=== PATIENT | male | born 1955 | race Caucasian/White ===

== ENCOUNTER 2023-06-22 23:50 | Emergency (ER) | payer OTHER, SELFPAY ==
[2023-06-23] VITALS (7 sets, daily range): BP systolic 119–169; BP diastolic 64–90; BMI 30.6
[2023-06-23 01:20] LABS: % Basophils 0.3 % (0-2); % Eosinophils 3.6 % (0-6); % Immature Granulocytes 0.4 % (0-0.5); % Lymphocytes 25.9 % (20.5-51.1); % Monocytes 10.1 % (1.7-9.3); % Neutrophils 59.7 % (42.2-75.2); Absolute Eosinophils 0.3 10^3/uL (0-0.7); Absolute Lymphocytes 1.9 10^3/uL (1.2-3.4); Absolute Monocytes 0.7 10^3/uL (0.1-0.6); Absolute Neutrophils 4.3 10^3/uL (1.4-6.5); Hematocrit 37.4 % (39.0-52.0); Hemoglobin 13.4 g/dL (13.0-18.0); Mean Corp Hgb Conc. 35.8 g/dL (33.0-37.0); Mean Corpuscular Hgb 31.2 pg (27.0-31.0); Mean Corpuscular Volume 87.2 fL (80.0-94.0); Mean Platelet Volume 10.1 fL (7.4-10.4); Nucleated Red Blood Cells % 0 % (-); Platelet Count 206 10^3/uL (130-400); Red Blood Cell Count 4.29 10^6/uL (4.70-6.10); Red Cell Dist. Width 13.2 % (11.5-14.5); White Blood Cell Count 7.3 10^3/uL (4.8-10.8)
[2023-06-23 01:31] LABS: D-Dimer 0.35 ug/mlFEU (0.00-0.50)
[2023-06-23 01:39] LABS: ALT (SGPT) 24 U/L (0-50); AST (SGOT) 33 U/L (17-59); Albumin 3.6 g/dl (3.5-5.0); Alkaline Phosphatase 71 U/L (38-126); Blood Urea Nitrogen 18 mg/dl (9-20); Calcium 9.1 mg/dl (8.4-10.2); Carbon Dioxide 26 mmol/L (22-30); Chloride 103 mmol/L (98-107); Estimated Creatinine Clearance 86 ml/min; Glucose 101 mg/dl (70-99); Potassium 3.2 mmol/L (3.5-5.1); Sodium 138 mmol/L (135-145); Total Bilirubin 0.5 mg/dl (0.2-1.3); Total Protein 5.6 g/dl (6.3-8.2); eGFR > 60.00
[2023-06-23 01:47] LABS: Troponin I < 0.012 ng/ml
--- NOTE | 2023-06-23 02:58 | ED.GENMED ---
History of Present Illness
<Jurgen Bradford PA-C - Last Filed: 06/24/23 07:09>
General
Chief Complaint: Chest Pain
Time Seen by Provider: 06/23/23 00:39
Travel History
Have you had any contact with someone who has COVID-19?: No
Do you have any symptoms of coronavirus? Fever > 100 degrees, chills, cough, shortness of breath, sore throat, loss of taste or smell, muscle aches, or headache?: No
History of Present Illness
History of Present Illness:
68-year-old male with history of A-fib, coronary artery disease, hypertension, and hyperlipidemia presents to the emergency department for evaluation of left-sided chest pain that began at 10:30 PM yesterday. Pain has lessened since onset, also
notes generalized headache and bilateral calf tingling at the onset of symptoms. Denies any pleuritic pain or shortness of breath. No associated fevers. Notes that his Eliquis was discontinued 1 month ago by his reserves clerk. Pain is currently
rated 1 out of 10, nonradiating.
Past History
<Jurgen Bradford PA-C - Last Filed: 06/24/23 07:09>
Past History
ED Past Medical History: Arrthythmia (Paroxysmal atrial fibrillation), GERD (Hiatal hernia), HTN, Hypercholesterolemia and NIDDM (diet control, prediabetes)
ED Past Surgical History: Cardiac (Coronary artery bypass), Tonsilectomy and Other (hernia repair)
Social History
Tobacco: Non-smoker
Alcohol: Occasional
Personal:
Living: with family
Employment: Retired
Family History
Family History: Hypertension
Review of Systems
<Jurgen Bradford PA-C - Last Filed: 06/24/23 07:09>
Review of Systems
Allergies reviewed?: Yes
All Other Systems: ROS reviewed and negative except as documented in HPI and ROS
Phy Exam
<Jurgen Bradford PA-C - Last Filed: 06/24/23 07:09>
Physical Exam
Physical Exam:
GEN: Well appearing, NAD, WDWN
HEENT: Oral mucosa moist, no scleral icterus
Cardiac: Regular rate and rhythm, no murmurs or rubs
Lung: No respiratory distress, no tachypnea, lungs clear to auscultation bilaterally
MSK: No gross deformity or injuries
Skin: Good color, no pallor or jaundice, no rashes
Neuro: AO x3, moves all extremities freely
Psych: Calm, cooperative
Scores
<Jurgen Bradford PA-C - Last Filed: 06/24/23 07:09>
Heart Score for Chest Pain Patients
STEMI patient?: No
History: Slightly or Non-Suspicious
ECG: Normal
Age: >/= 65 years
Risk Factors: >/= 3 Risk Factors or History of CAD
Troponin: </= Normal Limit
Heart Score for Chest Pain Patients: 4
Heart Score Risk: 20.3% MACE over next 6 weeks
<Sheron Argueta DO - Last Filed: 06/23/23 05:10>
Heart Score for Chest Pain Patients
Heart Score for Chest Pain Patients: 4
Heart Score Risk: 20.3% MACE over next 6 weeks
Course
<Jurgen Bradford PA-C - Last Filed: 06/24/23 07:09>
Orders/Labs/Results
Orders:
Orders
06/22/23 23:55
EKG [Electrocardiogram (*1)] Urgent
Reason for Study: Chest Pain
EKG- Treatment ONCE
06/23/23 01:01
Complete Blood Count/With Diff Urgent
Comprehensive Metabolic Panel Urgent
D-Dimer Urgent
Troponin I Urgent
06/23/23 02:03
EKG- Treatment ONCE
06/23/23 02:40
CR Chest - 2 Views Urgent
Comment:
Reason For Exam: L chest pain
06/23/23 03:14
Potassium Chloride [KCl] 40 meq PO NOW STA
06/23/23 04:00
EKG [Electrocardiogram (*1)] Routine
Reason for Study: Chest Pain
06/23/23 04:26
Troponin I Routine
Abnormal Lab Results
06/23/23
01:01
RBC 4.29 L 10^6/uL
(4.70-6.10)
Hct 37.4 L %
(39.0-52.0)
MCH 31.2 H pg
(27.0-31.0)
Absolute Monos (auto) 0.7 H 10^3/uL
(0.1-0.6)
Monocytes % 10.1 H %
(1.7-9.3)
Potassium 3.2 L mmol/L
(3.5-5.1)
Glucose 101 H mg/dl
(70-99)
Total Protein 5.6 L g/dl
(6.3-8.2)
06/23/23 01:01
06/23/23 01:01
Vital Signs
Initial and Last Documented VS:
Initial Vital Signs
Temp Pulse Resp BP Pulse Ox
98.4 F 69 20 169/80 97
06/23/23 00:02 06/23/23 00:02 06/23/23 00:02 06/23/23 00:02 06/23/23 00:02
Last Documented Vital Signs
Temp Pulse Resp BP Pulse Ox
98.4 F 53 11 121/72 94
06/23/23 00:02 06/23/23 05:00 06/23/23 05:00 06/23/23 05:00 06/23/23 05:00
<Sheron Argueta, DO - Last Filed: 06/23/23 05:10>
Orders/Labs/Results
Orders:
Orders
06/22/23 23:55
EKG [Electrocardiogram (*1)] Urgent
Reason for Study: Chest Pain
EKG- Treatment ONCE
06/23/23 01:01
Complete Blood Count/With Diff Urgent
Comprehensive Metabolic Panel Urgent
D-Dimer Urgent
Troponin I Urgent
06/23/23 02:03
EKG- Treatment ONCE
06/23/23 02:40
CR Chest - 2 Views Urgent
Comment:
Reason For Exam: L chest pain
06/23/23 03:14
Potassium Chloride [KCl] 40 meq PO NOW STA
06/23/23 04:00
EKG [Electrocardiogram (*1)] Routine
Reason for Study: Chest Pain
06/23/23 04:26
Troponin I Routine
Abnormal Lab Results
06/23/23
01:01
RBC 4.29 L 10^6/uL
(4.70-6.10)
Hct 37.4 L %
(39.0-52.0)
MCH 31.2 H pg
(27.0-31.0)
Absolute Monos (auto) 0.7 H 10^3/uL
(0.1-0.6)
Monocytes % 10.1 H %
(1.7-9.3)
Potassium 3.2 L mmol/L
(3.5-5.1)
Glucose 101 H mg/dl
(70-99)
Total Protein 5.6 L g/dl
(6.3-8.2)
06/23/23 01:01
06/23/23 01:01
Vital Signs
Initial and Last Documented VS:
Initial Vital Signs
Temp Pulse Resp BP Pulse Ox
98.4 F 69 20 169/80 97
06/23/23 00:02 06/23/23 00:02 06/23/23 00:02 06/23/23 00:02 06/23/23 00:02
Last Documented Vital Signs
Temp Pulse Resp BP Pulse Ox
98.4 F 53 11 121/72 94
06/23/23 00:02 06/23/23 05:00 06/23/23 05:00 06/23/23 05:00 06/23/23 05:00
<Jurgen Bradford PA-C - Last Filed: 06/24/23 07:09>
MDM/Problems Addressed
MDM/Problems Addressed:
68-year-old male presenting with acute chest pain that developed while seated in a chair. He had been exerting himself throughout the day earlier with no reproducible symptoms. Pain is quite minimal and does not sound anginal in nature. Patient
also had a cardiac catheterization in December showing minimal coronary disease. I have a low clinical suspicion for ACS. D-dimer rules out pulmonary embolism. That said given the patient's advanced age and numerous cardiovascular risk factors he
will have repeat troponin checked at 0400 hrs. and if negative may be discharged home, do not feel strongly that he requires close cardiac follow-up
<Jurgen Bradford PA-C - Last Filed: 06/24/23 07:09>
Comment
Comment:
Initial EKG independently interpreted by me shows normal sinus rhythm at a rate of [address] changes concerning for ischemia
*Critical Care Note
Total Time (30-74mins, 75-104mins- exclusive of procedures): Not Applicable
ED Attending Note
<Jurgen Bradford PA-C - Last Filed: 06/24/23 07:09>
-
Portions of this chart may have been created with voice recognition software.� Occasional wrong word or��sound alike� substitutions may have occurred due to the inherent limitations of voice recognition software.
<Sheron Argueta, DO - Last Filed: 06/23/23 05:10>
ED Attending Note
I performed the substantive portion of visit, reviewed & personally made and approve the management plan that is documented in note by myself or SAMINA.: Yes
ED Attending Note:
Patient presents with brief episode of sharp, stabbing chest pain while seated. Had been quite active throughout the day without symptomatology.
History of paroxysmal atrial fibrillation, previously maintained on Eliquis which has recently been discontinued, transition to aspirin.
Patient has been asymptomatic since arrival to the ED.
Records reveal cardiac catheterization December 2022, Performed for evaluation of progressive aortic stenosis and aortic valve replacement April 2020 along with intermittent chest pain. Cardiac catheterization showed mild/stable coronary artery
disease not requiring intervention.
EKGs unremarkable, unchanged from previous.
Labs are unremarkable including negative D-dimer, negative troponin x 2.
Nonspecific chest pain does not appear to be ACS nor thromboembolism in nature. Patient remains comfortable and pain-free.
Will plan for discharge to home with follow-up with PCP as well as primary reserves clerk.
Discharge Plan
Departure
Patient Disposition: Home (Routine Discharge)
Date of Disposition: 06/23/23
Time of Disposition: 05:05
Patient with high blood pressure during this ER visit?: No
Condition: Good
Discharge Problem:
Atypical chest pain
Instructions: Chest Pain (DC), Chest Pain PCP Follow Up
Prescriptions:
No Action
ezetimibe 10 MG tablet
10 mg PO DAILY
esomeprazole magnesium [Nexium] 40 MG capsule,delayed release(DR/EC)
40 mg PO BID PRN (Reason: reflux)
Men 50 Plus Multivitamin 1 EACH tablet
1 ea PO DAILY
ascorbic acid (vitamin C) 500 MG capsule
1,000 mg PO BID
acetaminophen 325 MG tablet
650 mg PO Q4HPRN PRN (Reason: pain)
Eliquis 2.5 mg Tablet
2.5 mg PO BID Qty: 60 0RF
metoprolol succinate 50 mg tablet extended release 24 hr
50 mg PO BID Qty: 60 0RF
furosemide [Lasix] 40 mg tablet
40 mg PO BID
amiodarone [Pacerone] 200 mg Tablet
200 mg PO DAILY Qty: 1 0RF
Rx Instructions:
Please note decreased dose
cyclosporine [Restasis] 0.05 % Dropperette
1 drp OPHTHALMIC (EYE) Q12H
rosuvastatin 10 mg Tablet
15 mg PO DAILY
isosorbide mononitrate 30 mg tablet extended release 24 hr
30 mg PO DAILY Qty: 90 5RF
Referrals:
Jen Hill DO [Family Provider] -
Interventions
Interventions:
*Risk Screen - Suicide Last Done: 06/23/23 00:55
*General Assessment Last Done: 06/23/23 00:55
*Neglect/Abuse Screening Last Done: 06/23/23 00:55
*ED COVID-19 Vaccine History Last Done: 06/23/23 00:55
*Nursing Disposition Last Done: 06/23/23 05:11
ED- Cardiac Assessment Last Done: 06/23/23 00:55
Discharge Date and Time
Discharge Date/Time: 06/23/23 05:11
[2023-06-23] MEDS: KCL 40 MEQ PO (04:29)
[2023-06-23 04:56] LABS: Troponin I < 0.012 ng/ml
== END 2023-06-23 05:11 | disposition home or self-care (01) ==
LOC: EMR 23:50
PROVIDERS: Physician Assistant; EMERGENCY PHYSICIAN Emergency Medicine; FAMILY PHYSICIAN Family Medicine
DX: R07.9 Chest pain, unspecified (principal); R07.89 Other chest pain; I48.0 Paroxysmal atrial fibrillation; I25.10 Atherosclerotic heart disease of native coronary artery without angina pectoris; I10 Essential (primary) hypertension; E78.00 Pure hypercholesterolemia, unspecified
CPT/HCPCS: 99285; 71046; 80053; 84484; 85025; 85379; 93005

== ENCOUNTER → 2023-08-25 08:23 | Outpatient (REF) | payer OTHER, SELFPAY | LOC: RCS 08:23 | PROVIDERS: ATTENDING PHYSICIAN Family Medicine; REFERRING PHYSICIAN Internal Medicine Cardiovascular Disease | DX: Z86.79 Personal history of other diseases of the circulatory system (principal); I49.1 Atrial premature depolarization | CPT/HCPCS: 93225; 93226 ==

== ENCOUNTER → 2023-10-05 10:15 | Outpatient (REF) | payer OTHER, SELFPAY | LOC: RCS 10:15 | PROVIDERS: ATTENDING PHYSICIAN Internal Medicine Cardiovascular Disease; FAMILY PHYSICIAN Family Medicine | DX: I10 Essential (primary) hypertension (principal) | CPT/HCPCS: 93306 ==

== ENCOUNTER → 2023-11-17 09:00 | Outpatient (REF) | payer OTHER, SELFPAY | LOC: DHSLP 09:00 | PROVIDERS: ATTENDING PHYSICIAN Internal Medicine; FAMILY PHYSICIAN Family Medicine | DX: G47.33 Obstructive sleep apnea (adult) (pediatric) (principal); G47.61 Periodic limb movement disorder; G47.52 REM sleep behavior disorder | CPT/HCPCS: 95811 ==

== ENCOUNTER → 2023-12-08 12:59 | Outpatient (REF) | payer OTHER, SELFPAY | LOC: RAD 12:59 | PROVIDERS: ATTENDING PHYSICIAN Internal Medicine Cardiovascular Disease; FAMILY PHYSICIAN Family Medicine | DX: R20.0 Anesthesia of skin (principal); R20.2 Paresthesia of skin | CPT/HCPCS: 93922; 93925 ==

== ENCOUNTER 2023-12-14 04:28 | Emergency (ER) | payer OTHER, SELFPAY ==
[2023-12-14] VITALS (22 sets, daily range): BP systolic 93–169; BP diastolic 54–91; BMI 29.9
[2023-12-14] MEDS: LOPRESSOR 5 MG IV (04:56)
[2023-12-14 05:14] LABS: % Basophils 0.3 % (0-2); % Eosinophils 3.1 % (0-6); % Immature Granulocytes 0.5 % (0-0.5); % Lymphocytes 25.8 % (20.5-51.1); % Monocytes 9.6 % (1.7-9.3); % Neutrophils 60.7 % (42.2-75.2); ALT (SGPT) 22 U/L (0-50); AST (SGOT) 31 U/L (17-59); Absolute Eosinophils 0.2 10^3/uL (0-0.7); Absolute Lymphocytes 1.7 10^3/uL (1.2-3.4); Absolute Monocytes 0.6 10^3/uL (0.1-0.6); Absolute Neutrophils 3.9 10^3/uL (1.4-6.5); Albumin 4.2 g/dl (3.5-5.0); Alkaline Phosphatase 95 U/L (38-126); Blood Urea Nitrogen 21 mg/dl (9-20); Calcium 9.3 mg/dl (8.4-10.2); Carbon Dioxide 23 mmol/L (22-30); Chloride 107 mmol/L (98-107); Estimated Creatinine Clearance 69 ml/min; Glucose 136 mg/dl (70-99); Hematocrit 41.2 % (39.0-52.0); Hemoglobin 14.5 g/dL (13.0-18.0); Mean Corp Hgb Conc. 35.2 g/dL (33.0-37.0); Mean Corpuscular Hgb 30.7 pg (27.0-31.0); Mean Corpuscular Volume 87.1 fL (80.0-94.0); Mean Platelet Volume 10.3 fL (7.4-10.4); Nucleated Red Blood Cells % 0 % (-); Platelet Count 203 10^3/uL (130-400); Potassium 3.6 mmol/L (3.5-5.1); Red Blood Cell Count 4.73 10^6/uL (4.70-6.10); Red Cell Dist. Width 13.2 % (11.5-14.5); Sodium 139 mmol/L (135-145); Total Bilirubin 0.6 mg/dl (0.2-1.3); Total Protein 6.4 g/dl (6.3-8.2); White Blood Cell Count 6.5 10^3/uL (4.8-10.8); eGFR > 60.00
--- NOTE | 2023-12-14 05:17 | ED.GENMED ---
History of Present Illness
General
Chief Complaint: Heart Rate Problem
Time Seen by Provider: 12/14/23 04:37
History of Present Illness
History of Present Illness:
68-year-old male with history of atrial fibrillation status post ablation x 2 and watchman's procedure, history of atrial valve replacement, hypertension presenting to the emergency department for concern of A-fib. Patient reports that around 230
this morning, he woke up from sleep with palpitations. Reports that his symptoms are consistent with atrial fibrillation, knows when he is in the abnormal rhythm. He has not been in atrial fibrillation since he had a watchman's procedure. He is
currently not on any anticoagulation. He denies chest pain, however notes a tightness secondary to palpitations. Denies difficulty breathing. Denies abdominal pain or GI symptoms. He follows with cardiology at [facility]. He notes that he saw
the hogshead liner on Tuesday, 5 days ago, at which time he was not in atrial fibrillation. Denies fever or cough. Denies additional acute medical complaints
Past History
Past History
ED Past Medical History: Arrthythmia (Paroxysmal atrial fibrillation), GERD (Hiatal hernia), HTN, Hypercholesterolemia and NIDDM (diet control, prediabetes)
ED Past Surgical History: Cardiac (Coronary artery bypass), Tonsilectomy and Other (hernia repair)
Social History
Tobacco: Non-smoker
Alcohol: Occasional
Personal:
Living: with family
Employment: Retired
Family History
Family History: Hypertension
Phy Exam
Physical Exam
Physical Exam:
General: Well-appearing, no clinical signs of dehydration, nontoxic and in no acute distress
HEENT: protecting airway
Neck: appears supple
CV: Irregularly irregular rhythm, tachycardic
Resp: No accessory muscle use, no increased work of breathing, lungs clear to auscultation bilaterally
Abd: Soft and non-distended, no tenderness to palpation, normal bowel sounds
Extremities: No deformities, no swelling, no erythema, pulses and sensation intact
Neuro: alert, no focal neurologic deficit
: deferred
Rectal: deferred
Psych: Normal affect
Skin: Intact
Course
Orders/Labs/Results
Orders:
Orders
12/14/23 04:34
Electrocardiogram (*1) Urgent
Reason for Study: Other
Other Reason for Exam: Respiratory Distress
Cardiac Monitoring- Treatment ONCE
EKG- Treatment ONCE
IV Insert/Care/Rem.- Treatment PRN
CR Chest - 2 Views Urgent
Comment:
Reason For Exam: respiratory distress
O2 Therapy [RESP] Urgent
Titrate/Wean O2 to maintain O2 sat greater than (%): 93
Special Instructions: TO MAINTAIN CONTINUOUS O2 SATS >/= 93%
Pulse Ox/cont/shift [RESP] Urgent
Quantity: 1
Special Instructions: continuous pulse ox
12/14/23 04:49
Metoprolol [Lopressor] 5 mg IV NOW STA
12/14/23 04:53
Complete Blood Count/With Diff Urgent
Comprehensive Metabolic Panel Urgent
NT-proBNP Urgent
Troponin I Urgent
12/14/23 05:04
Propofol [Diprivan] 20 ml .ROUTE .STK-MED
12/14/23 06:30
EKG [Electrocardiogram (*1)] Urgent
Reason for Study: Atrial Fibrillation
EKG- Treatment ONCE
12/14/23 06:34
0.9% Sodium Chloride 500 ml [Nss] 0 ml IV ONCE
Abnormal Lab Results
12/14/23
04:53
Monocytes % 9.6 H %
(1.7-9.3)
BUN 21 H mg/dl
(9-20)
Glucose 136 H mg/dl
(70-99)
12/14/23 04:53
12/14/23 04:53
Vital Signs
Initial and Last Documented VS:
Initial Vital Signs
Temp Pulse Resp BP Pulse Ox
98.2 F 103 20 149/79 99
12/14/23 04:31 12/14/23 04:31 12/14/23 04:31 12/14/23 04:31 12/14/23 04:31
Last Documented Vital Signs
Temp Pulse Resp BP Pulse Ox
97.8 F 57 11 115/67 93
12/14/23 07:34 12/14/23 07:45 12/14/23 07:45 12/14/23 08:00 12/14/23 07:59
Procedures
Cardioversion
Indication:: Afib
Performed by:: Martine Galloway DO
Synchronized?: Yes
Energy Used: 200 joules
Number of attempts: 1
Successful?: Yes
Complications: brief episode of apnea, resolved with rescue breaths
ASA Risk Score: Class II
Any reaction or bad outcome to prior sedation/anesthesia?: No history of a reaction
Sedation level to be attained: moderate
Chart and allergies reviewed: Yes
Patient reassessed prior to sedation: Yes
Time out completed at (validating right patient & procedure): 06:24
History of difficult intubation: No
Airway free of obstruction: Yes
Patient has a gag reflex: Yes
Patient is able to open mouth: Yes
Patient has no dentures: Yes
Patient has no loose teeth: Yes
Medication administered by Provider during Moderate Sedation: IV Propofol (mg)
Total dose administered: 90
Time drug administered: 06:25
Start Time: 06:25
Stop Time: 06:26
MDM/Problems Addressed
MDM/Problems Addressed:
68-year-old male with history of atrial fibrillation status post ablation x 2 and watchman's procedure presenting for concern of atrial fibrillation. Vital signs significant for tachycardia.
On exam, patient resting comfortably, no acute distress or discomfort. EKG obtained on arrival, consistent with A-fib with RVR. Suspect etiology of patient's palpitations and symptoms. Will screen with laboratory analysis. Will administer
metoprolol IV for rate control, patient is on metoprolol daily at home. Patient is interested in cardioversion, has been cardioverted in the past. He is requesting that we speak to cardiology. Will send message to hogshead liner.
06:15 -patient's labs unremarkable. Chest x-ray without acute cardiopulmonary disease. In discussion with cardiology, reports safe to do cardioversion despite watchman's procedure. Note no indication for anticoagulation after procedure. Patient
consented, would like to proceed with cardioversion. Please see procedure note.
06:40 -successful cardioversion. Repeat EKG is sinus rhythm. Will continue to monitor until clinically stable off propofol and able to ambulate for discharge with cardiology follow-up.
*EKG
Interpreted by ED Provider?: Yes
EKG Intrepretation Date: 12/14/23
EKG Intrepretation Time: 05:21
Interpretation: abnormal
Comparison EKG: changes noted (previously sinus, 06/23/23)
Heart Rate: 132
Rate: tachycardiac
Rhythm: a-fib
QRS Pattern: normal QRS
Ischemia: no ischemia
*Critical Care Note
Total Time (30-74mins, 75-104mins- exclusive of procedures): 35
comment:
The high probability of a clinically significant, sudden or life threatening deterioration of the cardiovascular, rapid A-fib system(s) required my full and direct attention, intervention and personal management. The aggregate critical care time was
[] minutes. This time is in addition to time spent performing reported procedures but includes the following:
[x] Data Review and interpretation
[x] Patient assessment and monitoring of vital signs
[x] Documentation
[x] Medication orders and management
ED Attending Note
-
Portions of this chart may have been created with voice recognition software.� Occasional wrong word or��sound alike� substitutions may have occurred due to the inherent limitations of voice recognition software.
Discharge Plan
Departure
Patient Disposition: Home (Routine Discharge)
Date of Disposition: 12/14/23
Time of Disposition: 06:58
Patient with high blood pressure during this ER visit?: No
Condition: Good
Discharge Problem:
Atrial fibrillation with rapid ventricular response, Encounter for cardioversion procedure
Instructions: Atrial Fibrillation (DC), Cardioversion (DC), Moderate Sedation in Adults (DC)
Prescriptions:
No Action
ezetimibe 10 MG tablet
10 mg PO DAILY
esomeprazole magnesium [Nexium] 40 MG capsule,delayed release(DR/EC)
40 mg PO BID PRN (Reason: reflux)
Men 50 Plus Multivitamin 1 EACH tablet
1 ea PO DAILY
ascorbic acid (vitamin C) 500 MG capsule
1,000 mg PO DAILY
acetaminophen 325 MG tablet
650 mg PO Q4HPRN PRN (Reason: pain)
metoprolol succinate 50 mg tablet extended release 24 hr
50 mg PO BID Qty: 60 0RF
furosemide [Lasix] 40 mg tablet
40 mg PO BID
cyclosporine [Restasis] 0.05 % Dropperette
1 drp OPHTHALMIC (EYE) Q12H
rosuvastatin 10 mg Tablet
15 mg PO HS
isosorbide mononitrate 30 mg tablet extended release 24 hr
30 mg PO DAILY Qty: 90 5RF
terazosin 1 mg Tablet
1 mg PO DAILY
aspirin 81 mg Tablet
81 mg PO DAILY
Referrals:
Jen Hill DO [Family Provider] -
Violeta Soria DO [Active] - (atrial fibrillation)
Activity Restrictions/Additional Instructions:
You were seen in the emergency department for atrial fibrillation
You were cardioverted into a normal sinus rhythm
Please follow-up closely with your hogshead liner.
Return to the emergency department for any worsening of your symptoms, or any development of chest pain, palpitations, difficulty breathing, abdominal pain with persistent vomiting and inability to tolerate food or liquid by mouth (concern for
dehydration), weakness, headache or confusion, fever greater than 100.4, or any additional symptoms that are concerning to you.
Thank you for choosing [facility].
Interventions
Interventions:
*Risk Screen - Suicide Last Done: 12/14/23 04:31
*General Assessment Last Done: 12/14/23 04:31
*Neglect/Abuse Screening Last Done: 12/14/23 04:31
ED- Fall Risk Assessment Last Done: 12/14/23 04:31
*ED COVID-19 Vaccine History Last Done: 12/14/23 04:31
*Nursing Disposition Last Done: 12/14/23 08:43
ED- Cardiac Assessment Last Done: 12/14/23 04:40
ED- Pulmonary Assessment Last Done: 12/14/23 04:40
Discharge Date and Time
Discharge Date/Time: 12/14/23 08:44
Print Language: JAPANESE
[2023-12-14 05:26] LABS: NT-proBNP 1470 pg/ml; Troponin I < 0.012 ng/ml
== END 2023-12-14 08:44 | disposition home or self-care (01) ==
LOC: EMR 04:28
PROVIDERS: EMERGENCY PHYSICIAN Student in an Organized Health Care Education/Training Program; FAMILY PHYSICIAN Family Medicine
DX: I48.91 Unspecified atrial fibrillation (principal); E11.9 Type 2 diabetes mellitus without complications; E78.00 Pure hypercholesterolemia, unspecified; I10 Essential (primary) hypertension; K21.9 Gastro-esophageal reflux disease without esophagitis; Z79.899 Other long term (current) drug therapy; Z82.49 Family history of ischemic heart disease and other diseases of the circulatory system; Z95.1 Presence of aortocoronary bypass graft; Z95.2 Presence of prosthetic heart valve
CPT/HCPCS: 99283; 92960; 96374; 96361; 71046; 80053; 83880; 84484; 85025; 93005

== ENCOUNTER 2024-01-02 20:31 | Emergency (ER) | payer OTHER, SELFPAY ==
[2024-01-02 20:33] VITALS: BP 156/70
[2024-01-02 20:58] LABS: % Basophils 0.2 % (0-2); % Eosinophils 2.9 % (0-6); % Immature Granulocytes 0.5 % (0-0.5); % Lymphocytes 14.5 % (20.5-51.1); % Monocytes 8.7 % (1.7-9.3); % Neutrophils 73.2 % (42.2-75.2); Absolute Eosinophils 0.3 10^3/uL (0-0.7); Absolute Immature Granulocytes 0.1 10^3/uL (0-0.05); Absolute Lymphocytes 1.6 10^3/uL (1.2-3.4); Absolute Monocytes 0.9 10^3/uL (0.1-0.6); Absolute Neutrophils 7.9 10^3/uL (1.4-6.5); Hematocrit 40.6 % (39.0-52.0); Hemoglobin 13.8 g/dL (13.0-18.0); Mean Corpuscular Hgb 30.7 pg (27.0-31.0); Mean Corpuscular Volume 90.4 fL (80.0-94.0); Mean Platelet Volume 10.3 fL (7.4-10.4); Nucleated Red Blood Cells % 0 % (-); Platelet Count 219 10^3/uL (130-400); Red Blood Cell Count 4.49 10^6/uL (4.70-6.10); Red Cell Dist. Width 13.2 % (11.5-14.5); White Blood Cell Count 10.7 10^3/uL (4.8-10.8)
[2024-01-02 21:13] LABS: COVID-19 Antigen Negative (Negative)
[2024-01-02 21:13] LABS: ALT (SGPT) 32 U/L (0-50); AST (SGOT) 34 U/L (17-59); Albumin 4.3 g/dl (3.5-5.0); Alkaline Phosphatase 97 U/L (38-126); Blood Urea Nitrogen 22 mg/dl (9-20); Calcium 9.1 mg/dl (8.4-10.2); Carbon Dioxide 26 mmol/L (22-30); Chloride 102 mmol/L (98-107); Glucose 116 mg/dl (70-99); Sodium 137 mmol/L (135-145); Total Bilirubin 0.5 mg/dl (0.2-1.3); Total Protein 6.6 g/dl (6.3-8.2); eGFR > 60.00
[2024-01-02 21:22] LABS: Troponin I < 0.012 ng/ml
--- NOTE | 2024-01-02 23:06 | ED.GENMED ---
History of Present Illness
<MARIEL Bailey (Lenka) - Last Filed: 01/03/24 00:15>
General
Chief Complaint: Cardiac Symptoms
Source: patient
Exam Limitations: none
Time Seen by Provider: 01/02/24 23:02
Nursing documentation reviewed up to this point in time: agreed with
History of Present Illness
History of Present Illness:
Pt is a 68 yo male with PMHx of AFib s/p ablation x 2, watchmans procedure (10/05/22), atrial valve replacement (2019), HTN/HLD presenting to the ED with flu-like symptoms x 4d and 'fluttering in the chest' x 1d. Per pt, he developed a low-grade
fever 4d ago (Tuesday, 12/29), general malaise, myalgias, mild swelling in his ankles, and loose soft stools for which he took Tylenol for with temporary relief. Tuesday his Tmax was 101F, so he applied Vicks vaporub and took amoxicillin ('2 capsules
twice, 500mg each) that he has at home for dental PPX. He reports waking up diaphoretic nightly. Last night he developed flutters in his chest x 2 min. Today he reports mild MAYORGA, flushing of the head/neck/back, chest tightness, and a cough, but
states that his body aches are improving. Today he contacted his PCP who did an EKG showing changes from a previous one, pt unsure what the changes were, and he was recommended to seek care in the ED d/t these changes in conjunction with the viral
symptoms. Denies dyspnea, chest pain, abdominal pain or cramping, N/V/C/D, decreased appetite, decreased PO intake.
Pt states that he knows when he enters an abnormal rhythm. Most recent AF with RVR occurred 12/14/23.
Follows with cardiology at [facility] - last bulk folder appointment 12/09/23. Next appointment scheduled for next week.
For past AFib exacerbations pt has required cardioversion. Only once was he managed with medications.
Past History
<MARIEL Bailey (Lenka) - Last Filed: 01/03/24 00:15>
Past History
ED Past Medical History: Arrthythmia (atrial fibrillation s/p watchmans procedure 09/2022), GERD (Hiatal hernia), HTN, Hypercholesterolemia and NIDDM (diet control, prediabetes)
ED Past Surgical History: Cardiac (Coronary artery bypass, aortic valve replacement), Tonsilectomy and Other (hernia repair)
Social History
Tobacco: Non-smoker
Alcohol: Occasional
Personal:
Living: with family
Employment: Retired
Family History
Family History: Hypertension
Phy Exam
<MARIEL Bailey (Lenka) - Last Filed: 01/03/24 00:15>
General Physical Exam
General Presentation: well appearing and no apparent distress
General age: appears stated age
General Skin: diaphoretic and flushed (face, neck, back)
General Habitus: normal
General Mental: alert
General Hydration: appears well hydrated
Cardiovascular Exam
Cardiovascular Exam: occasionally irregular and other (+1 pitting edema B/L up to ankles)
Pulmonary Exam
Pulmonary Exam: lungs clear, no respiratory distress, no rales, no rhonchi and no wheezing
Gastrointestinal Exam
Gastrointestinal Exam: normal bowel sounds, non tender, soft and non distended
Neurological Exam
Neurological Exam: alert, oriented x3 and speech normal
Skin Exam
Skin Exam: diaphoresis (mild)
Course
<ST Bailey (Lenka)NE - Last Filed: 01/03/24 00:15>
Orders/Labs/Results
Orders:
Orders
01/02/24 20:37
Electrocardiogram (*1) Urgent
Reason for Study: Palpitations
EKG- Treatment ONCE
01/02/24 20:49
CMP [Comprehensive Metabolic Panel] Urgent
Complete Blood Count/With Diff Urgent
Troponin I Urgent
01/02/24 20:50
COVID-19 Antigen Urgent
Source: Nasal Swab
Influenza A+B Rapid Molecular Urgent
SHANIKA Source: Nasal Swab
Specimen Description:
01/03/24 00:30
Lactic Acid Q4H
Comment: CANCEL 2nd LACTIC ACID IF 1st LACTIC ACID IS LESS THAN 2
Troponin I Urgent
Blood Culture Urgent
SHANIKA Source: Blood/Venous
Specimen Description:
01/03/24 00:34
Acetaminophen [Tylenol] 1,000 mg PO NOW STA
CR Chest - 2 Views Urgent
Comment:
Reason For Exam: fever
01/03/24 03:30
Troponin I Urgent
01/03/24 04:15
Lactic Acid Q4H
Comment: CANCEL 2nd LACTIC ACID IF 1st LACTIC ACID IS LESS THAN 2
Abnormal Lab Results
01/02/24
20:49
RBC 4.49 L 10^6/uL
(4.70-6.10)
Abs Immat Gran (auto) 0.1 H 10^3/uL
(0-0.05)
Absolute Neuts (auto) 7.9 H 10^3/uL
(1.4-6.5)
Absolute Monos (auto) 0.9 H 10^3/uL
(0.1-0.6)
Lymphocytes % 14.5 L %
(20.5-51.1)
BUN 22 H mg/dl
(9-20)
Glucose 116 H mg/dl
(70-99)
01/02/24 20:49
01/02/24 20:49
Vital Signs
Initial and Last Documented VS:
Initial Vital Signs
Temp Pulse Resp BP Pulse Ox
98.8 F 74 22 156/70 97
01/02/24 20:33 01/02/24 20:33 01/02/24 20:33 01/02/24 20:33 01/02/24 20:33
Last Documented Vital Signs
Temp Pulse Resp BP Pulse Ox
98.3 F 74 21 136/60 94
01/03/24 01:17 01/03/24 01:17 01/03/24 01:17 01/03/24 01:17 01/03/24 01:17
<Ronald Guadalupe, DO - Last Filed: 01/03/24 01:55>
Orders/Labs/Results
Orders:
Orders
01/02/24 20:37
Electrocardiogram (*1) Urgent
Reason for Study: Palpitations
EKG- Treatment ONCE
01/02/24 20:49
CMP [Comprehensive Metabolic Panel] Urgent
Complete Blood Count/With Diff Urgent
Troponin I Urgent
01/02/24 20:50
COVID-19 Antigen Urgent
Source: Nasal Swab
Influenza A+B Rapid Molecular Urgent
SHANIKA Source: Nasal Swab
Specimen Description:
01/03/24 00:30
Lactic Acid Q4H
Comment: CANCEL 2nd LACTIC ACID IF 1st LACTIC ACID IS LESS THAN 2
Troponin I Urgent
Blood Culture Urgent
SHANIKA Source: Blood/Venous
Specimen Description:
01/03/24 00:34
Acetaminophen [Tylenol] 1,000 mg PO NOW STA
CR Chest - 2 Views Urgent
Comment:
Reason For Exam: fever
01/03/24 03:30
Troponin I Urgent
01/03/24 04:15
Lactic Acid Q4H
Comment: CANCEL 2nd LACTIC ACID IF 1st LACTIC ACID IS LESS THAN 2
Abnormal Lab Results
01/02/24
20:49
RBC 4.49 L 10^6/uL
(4.70-6.10)
Abs Immat Gran (auto) 0.1 H 10^3/uL
(0-0.05)
Absolute Neuts (auto) 7.9 H 10^3/uL
(1.4-6.5)
Absolute Monos (auto) 0.9 H 10^3/uL
(0.1-0.6)
Lymphocytes % 14.5 L %
(20.5-51.1)
BUN 22 H mg/dl
(9-20)
Glucose 116 H mg/dl
(70-99)
01/02/24 20:49
01/02/24 20:49
Vital Signs
Initial and Last Documented VS:
Initial Vital Signs
Temp Pulse Resp BP Pulse Ox
98.8 F 74 22 156/70 97
01/02/24 20:33 01/02/24 20:33 01/02/24 20:33 01/02/24 20:33 01/02/24 20:33
Last Documented Vital Signs
Temp Pulse Resp BP Pulse Ox
98.3 F 74 21 136/60 94
01/03/24 01:17 01/03/24 01:17 01/03/24 01:17 01/03/24 01:17 01/03/24 01:17
<MARIEL Bailey (Lenka) - Last Filed: 01/03/24 00:15>
MDM/Problems Addressed
Differential Diagnosis Includes:
DDx: atrial flutter vs atrial fibrillation vs viral syndrome
Mildly diaphoretic but non-toxic appearing male presenting for viral symptoms and 2 minute episode of fluttering in his chest, with new-onset LE +1 pitting edema.
Will obtain an EKG to examine cardiac rhythm and compare to one done at PCP office earlier today.
Initial troponin negative.
COVID negative.
Influenza A/B negative.
<MARIEL Bailey (Lenka) - Last Filed: 01/03/24 00:15>
*Critical Care Note
Total Time (30-74mins, 75-104mins- exclusive of procedures): Not Applicable
ED Attending Note
<MARIEL Bailey (Lenka) - Last Filed: 01/03/24 00:15>
-
Portions of this chart may have been created with voice recognition software.� Occasional wrong word or��sound alike� substitutions may have occurred due to the inherent limitations of voice recognition software.
<Ronald Guadalupe DO - Last Filed: 01/03/24 01:55>
ED Attending Note
Patient seen and examined by attending physician: Yes
I performed the substantive portion of visit, reviewed & personally made and approve the management plan that is documented in note by myself or SAMINA.: Yes
I performed a history and physical exam of patient and discussed management with resident, I reviewed resident's note and agree with documented findings and plan of care.: Yes
ED Attending Note:
HPI: 4d ago onset of flu like symptoms; took Amoxicillin and Tylenol. Had Watchman 09/2022. Had fluttering in chest yesterday for 2min. He went to the PMD today for evaluation and the PMD noted new anterior flipped T waves. He also has lower
extremity edema.
EXAM:
GENERAL: Well appearing in no distress
HEENT: Moist oral mucosa
CARDIOVASCULAR: No murmurs, normal heart rate, regular rhythm, No chest wall tenderness
PULMONARY: No respiratory distress, breath sounds are clear and equal
ABDOMEN: Soft with no peritoneal signs, no tenderness
NEUROLOGIC: Excellent strength all extremities, no coordination deficits
PSYCHIATRIC: Appropriate mental status, normal insight and judgement
EXTREMITIES: Nontender, no edema, moves all extremities equally
SKIN: No rash, no lesions
TIME OF INITIAL ENCOUNTER: 12 AM
NUMBER AND COMPLEXITY OF PROBLEMS ADDRESSED AT THE ENCOUNTER
� Chronic conditions affecting care: A-fib, CAD, high blood pressure
� Acute Exacerbation and/or Progression of Chronic Illness: This is an acute problem
� Differential Diagnosis includes: Viral syndrome, bacteremia/sepsis, ACS unlikely, dysrhythmia
AMOUNT AND/OR COMPLEXITY OF DATA TO BE REVIEWED AND ANALYZED
� I performed an independent evaluation of and my interpretation is:
EKG: Sinus 79, anterior and inferior ST-T abnormality similar but slightly more prominent in comparison to 12/13
CT:
X-rays:I see no acute abnormality on chest x-ray, sternal sutures noted
Laboratory Studies: CBC unremarkable, chemistries unremarkable, initial troponin negative, COVID-negative
Other:
� Review of other/old records: I reviewed echo from 10/05/2023 which showed indeterminant diastolic function and an EF of 55 to 60% and is status post aortic valve replacement. I reviewed the cath report from 01/06/2023 which
showed 'reasonably stable coronary anatomy'
� Clinical information was obtained by an independent historian: None needed
� Prescriptions/Medications Considered but not given:
� Further testing considered but not performed:
RISK OF COMPLICATIONS AND/OR MORBIDITY OR MORTALITY OF PATIENT MANAGEMENT
� Social determinants of health affecting care: Lives at home
� Discussion with other providers: I initially discussed case with Dr. Gentile at the time of the initial troponin and reviewed the EKGs with him who did not feel that there was any significant concern based on EKG.
� Escalation of care including admission/observation vs risk of discharge considered: The patient has no significant chest discomfort but an EKG was obtained today due to palpitations yesterday. There was concern for T wave
inversion. Initial troponin less than 0.012 then increase to 0.018. Will check a third troponin.
Discharge Plan
Departure
Prescriptions:
No Action
ezetimibe 10 MG tablet
10 mg PO DAILY
esomeprazole magnesium [Nexium] 40 MG capsule,delayed release(DR/EC)
40 mg PO BID PRN (Reason: reflux)
Men 50 Plus Multivitamin 1 EACH tablet
1 ea PO DAILY
ascorbic acid (vitamin C) 500 MG capsule
1,000 mg PO DAILY
acetaminophen 325 MG tablet
650 mg PO Q4HPRN PRN (Reason: pain)
metoprolol succinate 50 mg tablet extended release 24 hr
50 mg PO BID Qty: 60 0RF
furosemide [Lasix] 40 mg tablet
40 mg PO BID
cyclosporine [Restasis] 0.05 % Dropperette
1 drp OPHTHALMIC (EYE) Q12H
rosuvastatin 10 mg Tablet
15 mg PO HS
isosorbide mononitrate 30 mg tablet extended release 24 hr
30 mg PO DAILY Qty: 90 5RF
terazosin 1 mg Tablet
1 mg PO DAILY
aspirin 81 mg Tablet
81 mg PO DAILY
Referrals:
Jen Hill DO [Family Provider] -
Interventions
Interventions:
*Risk Screen - Suicide Last Done: 01/02/24 20:33
*Neglect/Abuse Screening Last Done: 01/02/24 20:33
ED- Pulmonary Assessment Last Done: 01/02/24 23:09
ED- Cardiac Assessment Last Done: 01/02/24 23:09
Discharge Date and Time
Print Language: KYRGYZ
[2024-01-02 23:12] VITALS: BP 148/67
[2024-01-03 01:02] LABS: Lactic Acid 1.3 mmol/L (0.7-2.0)
[2024-01-03 01:05] LABS: Troponin I 0.018 ng/ml
[2024-01-03] MEDS: TYLENOL 1000 MG PO (01:14)
[2024-01-03 01:17] VITALS: BP 136/60
--- NOTE | 2024-01-03 02:50 | ED.GENMED ---
History of Present Illness
General
Chief Complaint: Cardiac Symptoms
Time Seen by Provider: 01/02/24 23:02
Past History
Past History
ED Past Medical History: Arrthythmia (atrial fibrillation s/p watchmans procedure 09/2022), GERD (Hiatal hernia), HTN, Hypercholesterolemia and NIDDM (diet control, prediabetes)
ED Past Surgical History: Cardiac (Coronary artery bypass, aortic valve replacement), Tonsilectomy and Other (hernia repair)
Social History
Tobacco: Non-smoker
Alcohol: Occasional
Personal:
Living: with family
Employment: Retired
Family History
Family History: Hypertension
Course
Orders/Labs/Results
Orders:
Orders
01/02/24 20:37
Electrocardiogram (*1) Urgent
Reason for Study: Palpitations
EKG- Treatment ONCE
01/02/24 20:49
CMP [Comprehensive Metabolic Panel] Urgent
Complete Blood Count/With Diff Urgent
Troponin I Urgent
01/02/24 20:50
COVID-19 Antigen Urgent
Source: Nasal Swab
Influenza A+B Rapid Molecular Urgent
SHANIKA Source: Nasal Swab
Specimen Description:
01/03/24 00:30
Lactic Acid Q4H
Comment: CANCEL 2nd LACTIC ACID IF 1st LACTIC ACID IS LESS THAN 2
Troponin I Urgent
Blood Culture Urgent
SHANIKA Source: Blood/Venous
Specimen Description:
01/03/24 00:34
Acetaminophen [Tylenol] 1,000 mg PO NOW STA
CR Chest - 2 Views Urgent
Comment:
Reason For Exam: fever
01/03/24 03:30
Troponin I Urgent
01/03/24 04:15
Lactic Acid Q4H
Comment: CANCEL 2nd LACTIC ACID IF 1st LACTIC ACID IS LESS THAN 2
Abnormal Lab Results
01/02/24
20:49
RBC 4.49 L 10^6/uL
(4.70-6.10)
Abs Immat Gran (auto) 0.1 H 10^3/uL
(0-0.05)
Absolute Neuts (auto) 7.9 H 10^3/uL
(1.4-6.5)
Absolute Monos (auto) 0.9 H 10^3/uL
(0.1-0.6)
Lymphocytes % 14.5 L %
(20.5-51.1)
BUN 22 H mg/dl
(9-20)
Glucose 116 H mg/dl
(70-99)
01/02/24 20:49
01/02/24 20:49
Vital Signs
Initial and Last Documented VS:
Initial Vital Signs
Temp Pulse Resp BP Pulse Ox
98.8 F 74 22 156/70 97
01/02/24 20:33 01/02/24 20:33 01/02/24 20:33 01/02/24 20:33 01/02/24 20:33
Last Documented Vital Signs
Temp Pulse Resp BP Pulse Ox
98.3 F 74 21 136/60 94
01/03/24 01:17 01/03/24 01:17 01/03/24 01:17 01/03/24 01:17 01/03/24 01:17
ED Attending Note
-
Portions of this chart may have been created with voice recognition software.� Occasional wrong word or��sound alike� substitutions may have occurred due to the inherent limitations of voice recognition software.
Discharge Plan
Departure
Prescriptions:
No Action
ezetimibe 10 MG tablet
10 mg PO DAILY
esomeprazole magnesium [Nexium] 40 MG capsule,delayed release(DR/EC)
40 mg PO BID PRN (Reason: reflux)
Men 50 Plus Multivitamin 1 EACH tablet
1 ea PO DAILY
ascorbic acid (vitamin C) 500 MG capsule
1,000 mg PO DAILY
acetaminophen 325 MG tablet
650 mg PO Q4HPRN PRN (Reason: pain)
metoprolol succinate 50 mg tablet extended release 24 hr
50 mg PO BID Qty: 60 0RF
furosemide [Lasix] 40 mg tablet
40 mg PO BID
cyclosporine [Restasis] 0.05 % Dropperette
1 drp OPHTHALMIC (EYE) Q12H
rosuvastatin 10 mg Tablet
15 mg PO HS
isosorbide mononitrate 30 mg tablet extended release 24 hr
30 mg PO DAILY Qty: 90 5RF
terazosin 1 mg Tablet
1 mg PO DAILY
aspirin 81 mg Tablet
81 mg PO DAILY
Referrals:
Jen Hill DO [Family Provider] -
Interventions
Interventions:
*Risk Screen - Suicide Last Done: 01/02/24 20:33
*Neglect/Abuse Screening Last Done: 01/02/24 20:33
ED- Pulmonary Assessment Last Done: 01/02/24 23:09
ED- Cardiac Assessment Last Done: 01/02/24 23:09
Discharge Date and Time
Print Language: SLOVENIAN
[2024-01-03 03:26] VITALS: BP 150/69
[2024-01-03 04:00] VITALS: BP 123/66
[2024-01-03 04:30] LABS: Troponin I < 0.012 ng/ml
== END 2024-01-03 04:50 | disposition home or self-care (01) ==
LOC: EMR 20:31
PROVIDERS: Emergency Medicine; EMERGENCY PHYSICIAN Emergency Medicine; FAMILY PHYSICIAN Family Medicine
DX: R00.2 Palpitations (principal); R60.0 Localized edema; R61 Generalized hyperhidrosis; R50.9 Fever, unspecified; M25.471 Effusion, right ankle; M25.472 Effusion, left ankle; R19.4 Change in bowel habit; R23.2 Flushing; R51.9 Headache, unspecified; Z11.52 Encounter for screening for COVID-19; K21.9 Gastro-esophageal reflux disease without esophagitis; K44.9 Diaphragmatic hernia without obstruction or gangrene; I48.91 Unspecified atrial fibrillation; I10 Essential (primary) hypertension; I25.10 Atherosclerotic heart disease of native coronary artery without angina pectoris; E78.00 Pure hypercholesterolemia, unspecified; R73.03 Prediabetes; Z95.2 Presence of prosthetic heart valve; Z95.1 Presence of aortocoronary bypass graft; Z79.82 Long term (current) use of aspirin
CPT/HCPCS: 99284; 71046; 80053; 83605; 84484; 85025; 87040; 87502; 87811; 93005

== ENCOUNTER → 2024-01-16 11:40 | Outpatient (REF) | payer OTHER, SELFPAY | LOC: DHCBC/DCA 11:40 | PROVIDERS: ATTENDING PHYSICIAN Physician Assistant; FAMILY PHYSICIAN Family Medicine | DX: Z95.2 Presence of prosthetic heart valve (principal); I48.0 Paroxysmal atrial fibrillation; I10 Essential (primary) hypertension; I25.10 Atherosclerotic heart disease of native coronary artery without angina pectoris | CPT/HCPCS: 78452; 93017; A9500 ==

== ENCOUNTER 2024-01-23 22:37 | Inpatient (IN) | payer OTHER, SELFPAY ==
[2024-01-23] VITALS (22 sets, daily range): BP systolic 98–141; BP diastolic 58–104; BMI 30.5; BMI 29.7
[2024-01-23 16:55] LABS: % Basophils 0.3 % (0-2); % Eosinophils 1.9 % (0-6); % Immature Granulocytes 0.3 % (0-0.5); % Lymphocytes 12.6 % (20.5-51.1); % Monocytes 8.8 % (1.7-9.3); % Neutrophils 76.1 % (42.2-75.2); Absolute Eosinophils 0.2 10^3/uL (0-0.7); Absolute Lymphocytes 1.3 10^3/uL (1.2-3.4); Absolute Monocytes 0.9 10^3/uL (0.1-0.6); Absolute Neutrophils 7.7 10^3/uL (1.4-6.5); Hematocrit 37.4 % (39.0-52.0); Mean Corp Hgb Conc. 34.8 g/dL (33.0-37.0); Mean Corpuscular Hgb 30.6 pg (27.0-31.0); Nucleated Red Blood Cells % 0 % (-); Platelet Count 245 10^3/uL (130-400); Red Blood Cell Count 4.25 10^6/uL (4.70-6.10); Red Cell Dist. Width 13.4 % (11.5-14.5); White Blood Cell Count 10.1 10^3/uL (4.8-10.8)
[2024-01-23 17:07] LABS: ALT (SGPT) 32 U/L (0-50); AST (SGOT) 34 U/L (17-59); Albumin 4.1 g/dl (3.5-5.0); Alkaline Phosphatase 123 U/L (38-126); Blood Urea Nitrogen 20 mg/dl (9-20); Calcium 9.6 mg/dl (8.4-10.2); Carbon Dioxide 26 mmol/L (22-30); Chloride 105 mmol/L (98-107); Glucose 101 mg/dl (70-99); Potassium 4.4 mmol/L (3.5-5.1); Sodium 141 mmol/L (135-145); Total Bilirubin 0.6 mg/dl (0.2-1.3); Total Protein 6.4 g/dl (6.3-8.2); eGFR > 60.00
[2024-01-23 17:18] LABS: Troponin I < 0.012 ng/ml
--- NOTE | 2024-01-23 17:42 | ED.GENMED ---
History of Present Illness
General
Chief Complaint: Heart Rate Problem
Source: patient and spouse
Time Seen by Provider: 01/23/24 17:27
History of Present Illness
History of Present Illness:
68-year-old male who is feeling his usual self until approximately 2:00 today while at the pool when he felt the sudden onset of fluttering described as 'heart racing' in his chest. At first he thought it might be reflux because he just had 2
hamburgers and some fruit. He left the pool and went home to lay down and his symptoms continued which prompted his visit here. Patient denies pain but describes typical symptoms of A-fib in the past including feeling the a pounding in his ears
and neck and a mild headache. He denies dyspnea, leg swelling fever, chills. Of note, patient did have fevers and chills Tuesday evening which resolved by yesterday. He denies abdominal pain, numbness, focal weakness. Patient is not currently
taking anticoagulation with the exception of a baby aspirin. His last episode of atrial fibrillation was approximately 1 month ago by which she presented the emergency department and was cardioverted.
Past History
Past History
ED Past Medical History: Arrthythmia (Paroxysmal atrial fibrillation), GERD (Hiatal hernia), HTN, Hypercholesterolemia and NIDDM (diet control, prediabetes)
ED Past Surgical History: Cardiac (Coronary artery bypass), Tonsilectomy and Other (hernia repair)
Social History
Tobacco: Non-smoker
Alcohol: Occasional
Personal:
Living: with family
Employment: Retired
Family History
Family History: Hypertension
Phy Exam
Physical Exam
Physical Exam:
GENERAL: Alert , in no apparent distress
EYE: pupils equal and reactive
NECK: Supple, no significant adenopathy.
ENT: o/p clr, mmm.
CARDIAC: Irregularly irregular, tachycardic
LUNGS: Clear breath sounds bilaterally, no acute respiratory distress, no wheezes rales or rhonchi
ABDOMEN: Soft, without focal tenderness, no r/g, no cvat
NEUROLOGICAL: Alert and oriented, no focal neuro deficits
SKIN: Warm and dry, skin intact.
MUSCULOSKELETAL: No edema, well perfused.
PSYCH: Normal and appropriate interaction.
Scores
[id number] Score for Afib Stroke Risk
Age in Years (65=0, 65-74=1, >/=75=2): 65-74
Sex (Female=+1): Male
Congestive Heart Failure History (Yes=+1): No
Hypertension History (Yes=+1): Yes
Stroke/TIA/Thromboembolism History (Yes=+2): No
Vascular Disease History (Yes=+1): No
Diabetes Mellitus (Yes=+1): No
Score: 2
Anticoagulation Recommendations: Recommend anticoagulation (as validated in nonvalvular fib)
Course
Orders/Labs/Results
Orders:
Orders
01/23/24 16:29
ECG [Electrocardiogram (*1)] Urgent
Reason for Study: Atrial Fibrillation
EKG- Treatment ONCE
01/23/24 16:41
Complete Blood Count/With Diff Urgent
Comprehensive Metabolic Panel Urgent
Troponin I Urgent
01/23/24 17:42
Metoprolol [Lopressor] 5 mg IV NOW STA
01/23/24 18:36
Metoprolol [Lopressor] 5 mg .ROUTE .STK-MED ONE
Metoprolol [Lopressor] 5 mg IV NOW STA
01/23/24 19:43
Metoprolol Xl [Toprol Xl] 50 mg PO NOW STA
Metoprolol [Lopressor] 5 mg IV NOW STA
01/23/24 20:26
Metoprolol [Lopressor] 5 mg IV NOW STA
Abnormal Lab Results
01/23/24
16:41
RBC 4.25 L 10^6/uL
(4.70-6.10)
Hct 37.4 L %
(39.0-52.0)
Absolute Neuts (auto) 7.7 H 10^3/uL
(1.4-6.5)
Absolute Monos (auto) 0.9 H 10^3/uL
(0.1-0.6)
Neutrophils % 76.1 H %
(42.2-75.2)
Lymphocytes % 12.6 L %
(20.5-51.1)
Glucose 101 H mg/dl
(70-99)
01/23/24 16:41
01/23/24 16:41
Vital Signs
Initial and Last Documented VS:
Initial Vital Signs
Temp Pulse Resp BP Pulse Ox
98 F 125 18 141/83 99
01/23/24 16:32 01/23/24 16:32 01/23/24 16:32 01/23/24 16:32 01/23/24 16:32
Last Documented Vital Signs
Temp Pulse Resp BP Pulse Ox
98 F 123 23 113/83 93
01/23/24 16:32 01/23/24 21:00 01/23/24 21:00 01/23/24 21:00 01/23/24 21:00
*Critical Care Note
Total Time (30-74mins, 75-104mins- exclusive of procedures): 30
Update Note
Update Note:
Patient presents to the Emergency Department with palpitations
Number and Complexity of Problems Addressed at the Encounter
� Chronic conditions affecting care:
� Acute Exacerbation and/or Progression of Chronic Illness:
� Differential Diagnosis includes: But not limited to A-fib, SVT, a flutter, anxiety, etc.
Amount and/or Complexity of Data to be Reviewed and Analyzed
� I performed an independent evaluation of and my interpretation is:
EKG: Read by me, A-fib with RVR, T wave inversions noted laterally
CT:
Xrays:
Laboratory Studies:generally unremarkable
Other:
� Review of other/old records reveals: prior watchman, prior echo etc.
� Clinical information was obtained by an independent historian: at bedside
� Prescriptions/Medications Considered but not given:
� Further testing considered but not performed:
Risk of Complications and/or Morbidity or Mortality of Patient Management
� Social determinants of health affecting care:
� Discussion with other providers (PCP, Hospitalists, Consultants, etc):
� Escalation of care including admission/observation vs risk of discharge considered:multiple d/w cards (Erasmo) regarding management of afib with rvr here. Pt reluctant to do cv here in ED (was just done last month). Despite
metoprolol 5mg IV times 4, he remains tachy and symptomatic. We will admit for ruther rate control, ccb gtt. D/w hospitalist for admission. Does not need AC given Henri. No cp. Mulitple reassessments of pt, etc.
ED Attending Note
-
Portions of this chart may have been created with voice recognition software.� Occasional wrong word or��sound alike� substitutions may have occurred due to the inherent limitations of voice recognition software.
Discharge Plan
Departure
Patient Disposition: Admit
Date of Disposition: 01/23/24
Time of Disposition: 21:28
Admit to: Telemetry
Presentation/result/management discussed w/ accepting MD/DO: Hospitalist
Condition: Fair
Discharge Problem:
Paroxysmal A-fib
Prescriptions:
No Action
ezetimibe 10 MG tablet
10 mg PO DAILY
esomeprazole magnesium [Nexium] 40 MG capsule,delayed release(DR/EC)
40 mg PO BIDPRN PRN (Reason: reflux)
Men 50 Plus Multivitamin 1 EACH tablet
1 ea PO DAILY
metoprolol succinate 50 mg tablet extended release 24 hr
50 mg PO BID Qty: 60 0RF
furosemide [Lasix] 40 mg tablet
40 mg PO BID
cyclosporine [Restasis] 0.05 % Dropperette
1 drp BOTH EYES Q4HPRN PRN (Reason: dry eyes)
rosuvastatin 10 mg Tablet
10 mg PO HS
Rx Instructions:
take with 5mg for total of 15mg
isosorbide mononitrate 30 mg tablet extended release 24 hr
30 mg PO DAILY Qty: 90 5RF
ascorbic acid (vitamin C) [Vitamin C] 1,000 mg Tablet
1 g PO DAILY
terazosin 1 mg Capsule
1 mg PO DAILY
acetaminophen [Tylenol 8 Hour] 650 mg Tablet Extended Release
1,300 mg PO [id number] PRN (Reason: mild pain)
aspirin 81 mg Tablet,Chewable
81 mg PO DAILY
rosuvastatin 5 mg Tablet
5 mg PO HS
Rx Instructions:
take with 10mg for total of 15mg
benzonatate 200 mg Capsule
200 mg PO TIDPRN PRN (Reason: cough)
guaifenesin [Robitussin] 100 mg/5 mL Liquid
200 mg PO Q4HPRN PRN (Reason: cough)
Referrals:
Jen Hill DO [Family Provider] -
Interventions
Interventions:
*Risk Screen - Suicide Last Done: 01/23/24 17:37
*General Assessment Last Done: 01/23/24 17:37
*Neglect/Abuse Screening Last Done: 01/23/24 17:37
ED- Fall Risk Assessment Last Done: 01/23/24 17:37
*ED COVID-19 Vaccine History Last Done: 01/23/24 17:37
ED- Cardiac Assessment Last Done: 01/23/24 17:37
ED- Pulmonary Assessment Last Done: 01/23/24 17:37
Discharge Date and Time
Print Language: KUWAITI
[2024-01-23] MEDS: LOPRESSOR 5 MG IV ×4 (17:44→20:31)
--- NOTE | 2024-01-23 19:37 | EDRN ---
Report recieved, introduced myself to patient, also spoke with Dr. Herman patients HR still is high, blood pressure has been soft, upper 90s systolic or low 100s, patient does have a low grade fever of 99.1, informed Dr. Herman of all of this, other
weber patient feels well, at bedside call gramajo in reach.
--- NOTE | 2024-01-23 19:39 | EDRN ---
Dr. Herman in at bedside going over plan
[2024-01-23] MEDS: TOPROL XL 50 MG PO (19:53)
--- NOTE | 2024-01-23 20:29 | EDRN ---
Patient's heart rate continues to stay elevated, spoke with Dr. Herman, she wants to give one more dose of IV Lopressor and see how he does and will re-assess
--- NOTE | 2024-01-23 21:10 | EDRN ---
Patient aware he is going to be admitted, provided with a turkey sandwich and drink of water, call gramajo in reach.
[2024-01-23] MEDS: CARDIZEM 125 IV (21:37)
--- NOTE | 2024-01-23 22:09 | HPS.HSE ---
Family Physician
-
Family Physician: Jen Hill
Chief Complaint
-
Palpitations and tachycardia
History of Present Illness
This is a 68-year-old male with a past medical history that is significant for aortic stenosis status post bioprosthetic valve, CHF with preserved EF, atrial fibrillation status post multiple ablations x 2, status post Watchman procedure who
presents to the Emergency Department with acute onset of palpitations at around 1:30 PM today.
Patient reports that he has generally been in usual state of health however about 3 weeks ago he had fevers consistent with a viral syndrome. In that setting the patient went into A-fib RVR and underwent cardioversion. Since then he has been
having intermittent palpitations. He reports that he generally was feeling better 1 day ago. No chest pain, lightheadedness dizziness shortness of breath dyspnea on exertion, nausea or vomiting. He denies any significant changes to his p.o.
intake. There was no acute changes in medications. Reports complete compliance. He was with friends in the pool earlier in the afternoon and then started noticing the palpitations. He checked his pulse and his rate was in the 150s. He denied
feeling short of breath or having lightheadedness dizziness or chest pain at that time.
He reports that about a year ago he had an ablation and is 6 months ago amiodarone was discontinued. Also of note approximately a year ago the patient did undergo a cardiac cath which showed clean coronaries. He had a recent stress test for his
palpitations which showed no reversible ischemia and was thought to have a primary electrophysiological abnormality.
On arrival in the emergency department his heart rate was in the 150s but he was afebrile, blood pressure was in the 120s over 70s and normal oxygen saturation on room air. ECG showed A-fib RVR with a rate of 141. CBC was unremarkable.
Chemistries were within normal limits with a K of 4.4. His troponin was 0.012. He was given multiple rounds of IV metoprolol without any improvement. Given his recent cardioversion and now down was not attempted at this time and patient was
started on diltiazem.
Medical History
Past Medical History
Past Medical History: Reports CHF, HTN and Hypercholesterolemia
Additional Past Medical History:
Paroxysmal atrial fibrillation s/p ablation
s/p bioprosthetic valve
S/P watchman
Past Surgical History: Reports Other
Social History
Tobacco: Non-smoker
Alcohol: None
Drug: None
Personal:
Living: With Family
Employment: Not Employed
Family History
Family History: Not pertinent
Allergies / Home Medications
Allergies reflects when Allergies were last updated in [facility].
Home Medications with original date entered in [facility]
Allergy/Medication List:
Allergies
Allergy/AdvReac Type Severity Reaction Status Date / Time
No Known Allergies Allergy Verified 01/23/24 16:32
Home Medications
ezetimibe 10 mg tablet 10 mg PO DAILY High cholesterol 12/16/15
esomeprazole magnesium 40 mg capsule,delayed release (Nexium) 40 mg PO BIDPRN PRN reflux 07/03/18
[id number] 300 mcg-K 60 mcg-lycop 600 mcg-lutein 300 mcg tablet (Men 50 Plus Multivitamin) 1 ea PO DAILY Supplement 04/17/19
metoprolol succinate 50 mg tablet,extended release 24 hr 50 mg PO BID Blood pressure #60 tabs 09/08/22
furosemide 40 mg tablet (Lasix) 40 mg PO BID 09/23/22
cyclosporine 0.05 % eye drops in a dropperette (Restasis) 1 drp BOTH EYES Q4HPRN PRN dry eyes 11/16/22
rosuvastatin 10 mg tablet 10 mg PO HS 11/16/22
isosorbide mononitrate 30 mg tablet,extended release 24 hr 30 mg PO DAILY #90 tabs 01/06/23
acetaminophen 650 mg tablet,extended release (Tylenol 8 Hour) 1,300 mg PO [id number] PRN mild pain 01/23/24
ascorbic acid (vitamin C) 1,000 mg tablet (Vitamin C) 1 g PO DAILY 01/23/24
aspirin 81 mg chewable tablet 81 mg PO DAILY 01/23/24
benzonatate 200 mg capsule 200 mg PO TIDPRN PRN cough 01/23/24
guaifenesin 100 mg/5 mL oral liquid 200 mg PO Q4HPRN PRN cough 01/23/24
rosuvastatin 5 mg tablet 5 mg PO HS 01/23/24
terazosin 1 mg capsule 1 mg PO DAILY 01/23/24
Review of Systems
-
History Source: Patient
Constitutional: Reports No Symptoms
EENT: Reports No Symptoms
Respiratory: Reports No Symptoms
Cardiac: Reports Palpitations
Abdomen/GI: Reports No Symptoms
: Reports No Symptoms
Musculoskeletal: Reports No Symptoms
Skin: Reports No Symptoms
Neurological: Reports No Symptoms
Endocrine: Reports No Symptoms
Hematologic/Lymphatic: Reports No Symptoms
Psych: Reports No Symptoms
Physical Exam
Vital Signs
Vital Signs
Temp Pulse Resp BP Pulse Ox
98 F 144 26 106/77 96
01/23/24 16:32 01/23/24 21:52 01/23/24 21:45 01/23/24 21:30 01/23/24 21:45
Physical Exam
General: Well Developed, Well Nourished and Comfortable
HEENT: NormoCephalic, Anicteric, Moist mucous membranes and PERRLA
Respiratory: Clear
Cardiac: S1/S2, Irregular Rhythm and Tachycardia
Breast: Deferred by me
GI: Soft, Non Tender, Non Distended and Normal Bowel Sounds
Rectal: Deferred by Provider
Genito-urinary: Deferred by me
Musculoskeletal: No Clubbing, No Cyanosis and No Edema
Skin: Warm
Neuro: AO x 3 and Nonfocal/grossly intact
Hematologic/Lymphatic: No Lymphadenopathy
Psych: Calm
Laboratory Results
-
01/23/24 16:41
01/23/24 16:41
Laboratory Results
Total Bilirubin 0.6 mg/dl (0.2-1.3) 01/23/24 16:41
AST 34 U/L (17-59) 01/23/24 16:41
ALT 32 U/L (0-50) 01/23/24 16:41
Alkaline Phosphatase 123 U/L (38-126) 01/23/24 16:41
Troponin I < 0.012 ng/ml 01/23/24 16:41
Data Reviewed
-
Medical Tests (Nuc Med, Echo, EKG etc): Image Personally Visualized and interpreted
Lab Data: Labs Reviewed by me
Old Records: Reviewed
Impression/Plan
-
IMPRESSION:
68 y.o with h/o paroxymal afib s/p watchman presents with episode of uncontrolled afib.
PLAN:
1. AFIB RVR - Hemodynamically stable, no chest pain, sob, dyspnea. Trop normal. No evidence of acute CHF exacerbation. Recent cardioversion so no repeat attempt. Cards notified. Rate is improved currently on dilt gtt (115 - 140)
- admit to IVU
- continue diltiam gtt titrate to rate < 110
- continue metoprolol 50 bid. Has room to titrate up but consideration of additional anti-arrythmic.
- cardiology consultation
- s/p watchmanm, no AC
- check tsh, keep K, Mag > 4,2.
2. CHF - No evidence of acute volume overload or CHF exacerbation.
- continue lasix 40 po bid
- continue b blockade and imdur.
- continue statin.
DVT PPX - lovenox sq
Full Code
--- NOTE | 2024-01-23 22:41 | EDRN ---
Patient complained of an intermittent headache behind left side of head and what he describes as heat behind his left ear, reports it comes and goes, re-checked temp, which is 98.2, patient not requiring nor asking for any medications for this,
however new complaint, informed Christie Gutierrez NP who is covering IVU, at this time will just monitor patient
[2024-01-24] VITALS (8 sets, daily range): BP systolic 100–122; BP diastolic 52–76; BMI 29.7; BMI 29.5
--- NOTE | 2024-01-24 00:02 | PTCARENOTE ---
received patient from the ED. AAOx3. oob, steady on his feet. denies any lightheadedness/dizziness. Afib on [id number]. Cardizem gtt infusing per protocol. bp stable. patient states wearing BIPAP at home-did not bring in. placed on 2L NC overnight
per patients request. 96% on RA. reviewed plan of care with patient and verbalized understanding. answered all questions. oriented to room.
[2024-01-24 06:02] LABS: Blood Urea Nitrogen 18 mg/dl (9-20); Calcium 9.2 mg/dl (8.4-10.2); Carbon Dioxide 25 mmol/L (22-30); Chloride 106 mmol/L (98-107); Estimated Creatinine Clearance 76 ml/min; Glucose 100 mg/dl (70-99); Magnesium 2.3 mg/dl (1.6-2.3); Potassium 4.3 mmol/L (3.5-5.1); Sodium 141 mmol/L (135-145); eGFR > 60.00
[2024-01-24 06:32] LABS: TSH Reflex To Free T4 4.11 uIU/ml (0.47-4.68)
[2024-01-24] MEDS: IMDUR (EXTENDED RELEASE) 30 MG PO (07:47)
[2024-01-24] MEDS: ZETIA 10 MG PO (07:47)
[2024-01-24] MEDS: HYTRIN 1 MG PO (07:47)
[2024-01-24] MEDS: LASIX 40 MG PO ×2 (07:48→19:36)
[2024-01-24] MEDS: LOW STRENGTH ASPIRIN 81 MG PO (07:48)
[2024-01-24] MEDS: FLUSH (NSS) 1 FLUSH IV (07:48)
[2024-01-24] MEDS: TOPROL XL 50 MG PO ×2 (07:48→19:36)
--- NOTE | 2024-01-24 08:13 | W.PN.HOSP.TC ---
Today's Communication/Plan
-
see A/P
Assessment / Plan
Assessment / Plan
68-year-old male with past medical history that is significant for aortic stenosis status post bioprosthetic valve, CHF with preserved EF, atrial fibrillation status post multiple ablations x 2, status post Watchman procedure who presented to the
Emergency Department with acute onset of palpitations at around 1:30 PM
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 In that setting, the patient went into A-fib RVR and underwent cardioversion. Since then he has been having
intermittent palpitations.
There was no acute changes in medications. Reports complete compliance. He was with friends in the pool in the afternoon and then started noticing palpitations. He checked his pulse and his rate was in the 150s.
He reports that about a year ago he had an ablation and 6 months ago amiodarone was discontinued. Also of note approximately a year ago the patient did undergo a cardiac cath which showed clean coronaries. He had a recent stress test for his
palpitations which showed no reversible ischemia and was thought to have a primary electrophysiological abnormality.
On arrival in the emergency department his heart rate was in the 150s but he was afebrile, blood pressure was in the 120s over 70s and normal oxygen saturation on room air. ECG showed A-fib RVR with a rate of 141. His troponin was 0.012. He was
given multiple rounds of IV metoprolol without any improvement. Patient was started on diltiazem.
A/P:
# AFIB RVR on admission
# s/p watchmanm, no AC
Hemodynamically stable, no chest pain, sob, dyspnea.
Trop normal. No evidence of acute CHF exacerbation. Recent cardioversion so no repeat attempt.
Cards notified.
Rate is improved currently on dilt gtt (115 - 140). Continue diltiam gtt titrate to rate < 110
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
TSH 4.11
# Chronic diastolic CHF
Continue lasix 40 po bid
Continue b blockade and imdur.
Continue statin.
DVT PPX - Lovenox sq
Full Code
Anticipated Discharge: 24 - 48 hours
Subjective/Interval History
-
Date of Service: January 24, 2024
Objective Data
-
Labs:
Laboratory Results
01/24/24
05:14
Sodium 141
Potassium 4.3
Chloride 106
Carbon Dioxide 25
BUN 18
Creatinine 0.9
Glucose 100 H
Calcium 9.2
Vital Signs:
Vital Signs
Temp Pulse Resp BP Pulse Ox
36.4 C 94 18 122/76 89
01/24/24 07:08 01/24/24 07:11 01/24/24 07:08 01/24/24 07:11 01/24/24 07:11
Review of Systems
-
All other systems: Reviewed and negative
Physical Exam
-
General: Well Developed, Well Nourished, No Apparent Distress, Comfortable and Conversant
HEENT: Normocephalic and Atraumatic
Respiratory: Clear to Auscultation
Cardiac: S1/S2, Irregular Rhythm and Tachycardic
GI: Soft and Nontender
Neuro: Awake, Alert, Oriented and AO x 3
Psych: Calm and Intact Judgement/Insight
Data Reviewed
-
Labs: Labs Reviewed by me
--- NOTE | 2024-01-24 08:45 | CON.CAR ---
Addendum entered and electronically signed by Guru Bates MD 01/24/24 10:13:
I saw and examined the patient.
The Charge Operator's note was reviewed and I agree with the note.
Comment:
GEN: No distress, awake, Ox3
HEENT: supple, anicteric, mmm
LUNGS: scatt rhonchi
CV: Irreg, S1/S2, 1/6 syst LSB, no murmur
ABD: soft, BS+, NT/ND
EXT: No edema
NEURO: Gross non-focal
SKIN: No rash
PLan:
He has a past medical history of AVR, watchman implant September 2022, and paroxysmal atrial fibrillation status post ablation x 2 in 2018 and 2022. He also has a history of cerebral amyloid angiopathy. He presents with recurrent atrial fibrillation.
He has had cough and fever for the past several days. He then went into rapid atrial fibrillation yesterday around 130. He then has continued shortness of breath and fatigue. He denies any chest pains. Troponin is negative. TSH 4.
EKATERINA from 2022 did reveal a 3 mm residual leak around the left atrial appendage occlusion Watchman device. He has been maintained as an outpatient on aspirin 81 mg alone.
This is a challenging case. He is being evaluated for redo ablation and has an outpatient visit on Tuesday.
We will continue Toprol and start amiodarone 200 mg p.o. 3 times daily. If he remains highly symptomatic and in atrial fibrillation would recommend EKATERINA with possible cardioversion. The issue of anticoagulation is also unclear. He has cerebral
amyloid angiopathy but also has a 3 mm residual leak. Will discuss case with electrophysiology. We may need to initiate anticoagulation for the short-term.
Check proBNP and chest x-ray. Will likely give dose of IV Lasix today.
Continue medical therapy for microvascular angina and LAD bridge.
Original Note:
Consultation
Consultation Request
Date/Time Consultation Requested: 01/23/2024
Date/Time Consultation Performed: 01/24/2024
Requesting Provider: Dr. Amin
Performing Provider: Shea Dao PA-C for Dr. Bates
Reason for Consultation: Symptomatic atrial fibrillation
Medical History
-
Chief Complaint: afib
History of Present Illness:
Patient is a 68-year-old male with past medical history of abnormal EKG, microvascular angina with LAD myocardial bridge, but nonobstructive CAD on cath 12/2022, dyslipidemia, s/p bovine aortic valve replacement, watchman implant September 2022 and
paroxysmal atrial fibrillation status post ablation 2018, redo ablation September 2022 and multiple cardioversions most recently November 2023. He also has cerebral amyloid angiopathy, followed by neurology, Dr. Carl, and neurosurgery at [place],
[place]. Xarelto was discontinued per their recommendation 04/2021. He underwent watchman implant September 2022 with post watchman EKATERINA in October 2022 demonstrating Less than 3 mm residual flow seen around the device into the left atrial appendage by color
Doppler. He is maintained on aspirin 81 mg.
He presents to emergency department 01/23/2024 with complaints of acute onset of palpitations and rapid heartbeat. Patient reports in mid to late November he noted intermittent fevers associated with cough and developed an episode of palpitations and
elevated heart rate. He was evaluated in the emergency department and underwent cardioversion. He was noted to have abnormal EKG with anterolateral T wave inversion more pronounced from prior EKGs and underwent a exercise nuclear stress test which
failed to demonstrate evidence of ischemia on perfusion imaging. He has continued to have intermittent fever with night sweats and cough over the last month. He was sitting outside at the pool and noticed acute onset of palpitations around 130 on
01/23/2024. He felt intermittent dizziness and some shortness of breath and noted his heart rate to be in the 150s prompting him to come to the emergency department. He was noted to be in atrial fibrillation with rapid ventricular response. Given
several boluses of IV metoprolol without improvement of symptoms and ultimately he was started on IV diltiazem drip. Troponin was negative. Normal WBC and unremarkable electrolytes. TSH 4.11. At time of this evaluation patient remains in atrial
fibrillation with controlled ventricular response on diltiazem drip. He denies chest pain, shortness of breath, dizziness, lightheadedness, edema, orthopnea or PND. He does continue to have dry cough. Afebrile.
PMH:
Paroxysmal atrial fibrillation
s/p PVI ablation 2018
Repeat PVI ablation September 2022
s/p CV November 2022, November 2023
Not OAC candidate due to cerebral amyloid angiopathy
Watchman implant September 2022
microvascular angina with LAD myocardial bridge, but nonobstructive CAD
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
Dyslipidemia
HTN
Past Medical History
Past Medical History: Other (in HPI)
Past Surgical History: Cardiac (PVI ablation 2018, redo PVI September 2022, multiple cardioversions, aortic valve replacement April 2020) and Other (Hernia repair, Mohs procedure)
Social History
Tobacco: Non-Smoker
Alcohol: Occasional
Personal:
Living: With Family
Employment: Retired
Family History
Family History: CAD (s/p CABG in father) and Cancer
Allergies / Home Medications
Allergy/AdvReac Type Severity Reaction Status Date / Time
No Known Allergies Allergy Verified 01/23/24 16:32
�Medication �Instructions �Recorded �Confirmed �Type
ezetimibe 10 mg tablet 10 mg PO DAILY High cholesterol 12/16/15 01/23/24 History
esomeprazole magnesium 40 mg 40 mg PO BIDPRN PRN reflux 07/03/18 01/23/24 History
capsule,delayed release (Nexium)
[id number] 300 mcg-K 60 1 ea PO DAILY Supplement 04/17/19 01/23/24 History
mcg-lycop 600 mcg-lutein 300 mcg
tablet (Men 50 Plus Multivitamin)
metoprolol succinate 50 mg 50 mg PO BID Blood pressure #60 09/08/22 01/23/24 Rx
tablet,extended release 24 hr tabs
furosemide 40 mg tablet (Lasix) 40 mg PO BID Fluid 09/23/22 01/23/24 History
Retention/Swelling
cyclosporine 0.05 % eye drops in a 1 drp BOTH EYES Q4HPRN PRN dry eyes 11/16/22 01/23/24 History
dropperette (Restasis)
rosuvastatin 10 mg tablet 10 mg PO HS High Cholesterol 11/16/22 01/23/24 History
isosorbide mononitrate 30 mg 30 mg PO DAILY #90 tabs 01/06/23 01/23/24 Rx
tablet,extended release 24 hr
acetaminophen 650 mg 1,300 mg PO [id number] PRN mild pain 01/23/24 01/23/24 History
tablet,extended release (Tylenol 8
Hour)
ascorbic acid (vitamin C) 1,000 mg 1 g PO DAILY Supplement 01/23/24 01/23/24 History
tablet (Vitamin C)
aspirin 81 mg chewable tablet 81 mg PO DAILY Blood Clot 01/23/24 01/23/24 History
Prevention/Tx
benzonatate 200 mg capsule 200 mg PO TIDPRN PRN cough 01/23/24 01/23/24 History
guaifenesin 100 mg/5 mL oral liquid 200 mg PO Q4HPRN PRN cough 01/23/24 01/23/24 History
rosuvastatin 5 mg tablet 5 mg PO HS High Cholesterol 01/23/24 01/23/24 History
terazosin 1 mg capsule 1 mg PO DAILY Blood Pressure 01/23/24 01/23/24 History
Review of Systems
-
History Source: Patient
All other systems: Negative unless noted
Physical Exam
Vital Signs
Temp Pulse Resp BP Pulse Ox
97.5 F 94 18 122/76 89
01/24/24 07:08 01/24/24 07:11 01/24/24 07:08 01/24/24 07:11 01/24/24 07:11
GEN: No distress, awake, Ox3, sitting in chair
HEENT: supple, anicteric, mmm
LUNGS: CTA but cough with deep breaths, no wheezes/rales, on room air
CV: Irregularly irregular, S1/S2, 1/6 syst murmur, no rub or gallop
ABD: soft, BS+, NT/ND
EXT: No edema, clubbing or cyanosis
NEURO: Gross non-focal
SKIN: No rash, warm, dry, pink
Lab Results
01/23/24 16:41
01/24/24 05:14
Troponin I < 0.012 ng/ml 01/23/24 16:41
Impression / Plan
-
Primary Adjunct Lecturer: Dr. Soria
Primary EP: Dr. Aranda
Assessment:
Presented 01/23/2024 with acute onset of palpitations
Atrial fibrillation with rapid ventricular response
Paroxysmal atrial fibrillation
s/p PVI ablation 2018
Repeat PVI ablation September 2022
s/p CV November 2022, November 2023
Cerebral amyloid angiopathy, not ideal long-term OAC candidate
Watchman implant October 04, 2022
microvascular angina with LAD myocardial bridge, but nonobstructive CAD on cath 12/2022
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
Dyslipidemia
HTN
Remote CVA
Hyperlipidemia
Exercise nuclear stress test 01/16/2024: 6:00, 7 METS, 95% PMHR, frequent PACs fixed defect in mid anterior, mid anterolateral, mid inferolateral, apical anterior and apical lateral segments consistent with soft tissue attenuation
Nuclear stress test March 03, 2022:�small mild partially reversible mid anterior lateral and apical lateral defect which partially improves with prone imaging and likely represents soft tissue attenuation but cannot completely exclude underlying
ischemia. Gated LVEF is 67%
Cardiac catheterization 01/06/2023: LM: Mild distal tapering. LAD: 30% mid with evidence of myocardial bridge noted in mid LAD. Left circumflex: Ostial 50%. RCA: 30% mid and distal stenosis with patent PDA
MRI of the brain April 23, 2021:�demonstrates tiny chronic microhemorrhages in the left frontal lobe and bilateral occipital lobes which is felt to represent early changes of cerebral amyloid angiopathy
Echo 10/05/2023: EF 55 to 60%, mild concentric LVH. Normal regional wall motion, mildly dilated left atrium, status post number 25 mm Ortiz bovine pericardial tissue valve peak/mean gradient 12/7 mmHg, mild to moderate TR with PAP 39 mmHg
EKATERINA 11/16/2022: Well-seated 35 mm Watchman left atrial appendage occluder device. Less than 3 mm residual flow seen around the device into the left atrial appendage by color Doppler. Unchanged from implant. No thrombus noted. EF 60%. Mild MR.
Number 25 mm Ortiz bovine tissue aortic valve replacement without regurgitation. Mild to moderate TR.
ECHO 08/23/22: EF 60 to 65%, mild concentric LVH, stage I diastolic dysfunction, well-seated number 25 mm Ortiz bovine pericardial tissue aortic valve replacement with peak/mean gradients 12/7 mmHg, no AR, moderate TR, PASP 40 to 45 mmHg
Plan:
-Patient presents with symptomatic atrial fibrillation with rapid ventricular response which started 01/23/2024. Patient had cardioversion in emergency department 12/14/2023 with similar presentation.
-Previously on flecainide and amiodarone. Tolerated both in past but not on either at this time.
-Given recurrence of symptomatic atrial fibrillation will start amiodarone 200 mg 3 times daily. Continue metoprolol 50 mg twice a day
-Discontinue diltiazem drip
-Will check echocardiogram.
-If patient fails to convert we will have him get EKATERINA/cardioversion in a.m. 01/25/2024
-Patient has scheduled outpatient visit with electrophysiology on 01/27/2024. Would consider repeat ablation
-He is a high risk for bleeding due to cerebral amyloid angiopathy (chronic microhemorrhage). May need to consider short term OAC. Previously was able to tolerate Eliquis 2.5 mg twice a day.
-TSH 4.11
-Admits to ongoing intermittent low-grade fever associated with night sweats, cough for several weeks. Suspect viral syndrome, although etiology unclear. Will check chest x-ray and proBNP. Patient has been afebrile this admission
-Continue Lasix 40 mg p.o. twice daily. Pending proBNP could consider dose of IV Lasix however patient does not appear to be acutely volume overloaded on examination.
-trop negative x1. no chest pain. Has history of abnormal EKG with anterior lateral T wave inversions. These wax and wane. He does have history of LAD myocardial bridge which could be because of waxing and waning EKG abnormality. Most recent
outpatient exercise nuclear stress test failed to demonstrate ischemia on 01/16/2024. No further ischemic evaluation at this time
Plan discussed with patient, nursing, Dr. Lucia hospitalist
HPI 01/24/2024:
Patient is a 68-year-old male with past medical history of abnormal EKG, microvascular angina with LAD myocardial bridge, but nonobstructive CAD on cath 12/2022, dyslipidemia, s/p bovine aortic valve replacement, watchman implant September 2022 and
paroxysmal atrial fibrillation status post ablation 2018, redo ablation September 2022 and multiple cardioversions most recently November 2023. He also has cerebral amyloid angiopathy, followed by neurology, Dr. Carl, and neurosurgery at [place],
[place]. Xarelto was discontinued per their recommendation 04/2021. He underwent watchman implant September 2022 with post watchman EKATERINA in October 2022 demonstrating Less than 3 mm residual flow seen around the device into the left atrial appendage by color
Doppler. He is maintained on aspirin 81 mg.
He presents to emergency department 01/23/2024 with complaints of acute onset of palpitations and rapid heartbeat. Patient reports in mid to late November he noted intermittent fevers associated with cough and developed an episode of palpitations and
elevated heart rate. He was evaluated in the emergency department and underwent cardioversion. He was noted to have abnormal EKG with anterolateral T wave inversion more pronounced from prior EKGs and underwent a exercise nuclear stress test which
failed to demonstrate evidence of ischemia on perfusion imaging. He has continued to have intermittent fever with night sweats and cough over the last month. He was sitting outside at the pool and noticed acute onset of palpitations around 130 on
01/23/2024. He felt intermittent dizziness and some shortness of breath and noted his heart rate to be in the 150s prompting him to come to the emergency department. He was noted to be in atrial fibrillation with rapid ventricular response. Given
several boluses of IV metoprolol without improvement of symptoms and ultimately he was started on IV diltiazem drip. Troponin was negative. Normal WBC and unremarkable electrolytes. TSH 4.11. At time of this evaluation patient remains in atrial
fibrillation with controlled ventricular response on diltiazem drip. He denies chest pain, shortness of breath, dizziness, lightheadedness, edema, orthopnea or PND. He does continue to have dry cough. Afebrile.
Data Reviewed
-
EKG: Report Reviewed by me, Discussed with Physician, Discussed with Nurse and Discussed with Patient
Labs: Labs Reviewed by me, Discussed with Physician, Discussed with Nurse and Discussed with Patient
Old Records: Reviewed
[2024-01-24] MEDS: PACERONE 200 MG PO ×3 (09:36→22:18)
[2024-01-24 10:55] LABS: NT-proBNP 6530 pg/ml
--- NOTE | 2024-01-24 12:26 | CM ---
Chart reviewed. Patient is independent of ADLS, lives with his in a [address], 1 [address], 0 DME. Plan is for the patient to return home. CM to follow
[2024-01-24] MEDS: TESSALON PERLES 200 MG PO (15:44)
--- NOTE | 2024-01-24 17:24 | PTCARENOTE ---
The patient's vital signs have been stable all shift. Afib noted on the monitor. At times he feels 'fluttering' in his left chest. He has had a non-productive moist cough all throughout the shift. Tessalon Perles were ordered and given. Heart
Failure education provided to both him and his .
[2024-01-24] MEDS: LOVENOX 40 MG SC (17:39)
[2024-01-24] MEDS: CRESTOR 10 MG PO (22:18)
[2024-01-24] MEDS: CRESTOR 5 MG PO (22:19)
[2024-01-25] VITALS (13 sets, daily range): BP systolic 98–129; BP diastolic 54–76; BMI 29.1
--- NOTE | 2024-01-25 01:57 | PTCARENOTE ---
Patient remains Afib w/ occasional PVCs on tele. HR in the 90-120s. Pt aware of POC for planned EKATERINA/CV. Pt aware of NPO status and verbalized understanding. Call gramajo within reach.
[2024-01-25 04:07] LABS: Blood Urea Nitrogen 19 mg/dl (9-20); Calcium 8.9 mg/dl (8.4-10.2); Carbon Dioxide 24 mmol/L (22-30); Chloride 106 mmol/L (98-107); Estimated Creatinine Clearance 76 ml/min; Glucose 101 mg/dl (70-99); Magnesium 2.1 mg/dl (1.6-2.3); Potassium 4.3 mmol/L (3.5-5.1); Sodium 140 mmol/L (135-145); eGFR > 60.00
[2024-01-25] MEDS: TYLENOL 650 MG PO ×2 (04:40→15:35)
--- NOTE | 2024-01-25 07:57 | PTCARENOTE ---
Patient taken for EKATERINA/CV at change of shift.
[2024-01-25] MEDS: ELIQUIS 2.5 MG PO ×2 (07:59→19:33)
--- NOTE | 2024-01-25 08:02 | W.PN.HOSP.TC ---
Today's Communication/Plan
-
see A/P
Assessment / Plan
Assessment / Plan
68-year-old male with past medical history that is significant for aortic stenosis status post bioprosthetic valve, CHF with preserved EF, atrial fibrillation status post multiple ablations x 2, status post Watchman procedure who presented to the
Emergency Department with acute onset of palpitations at around 1:30 PM
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 In that setting, the patient went into A-fib RVR and underwent cardioversion. Since then he has been having
intermittent palpitations.
There was no acute changes in medications. Reports complete compliance. He was with friends in the pool in the afternoon and then started noticing palpitations. He checked his pulse and his rate was in the 150s.
He reports that about a year ago he had an ablation and 6 months ago amiodarone was discontinued. Also of note approximately a year ago the patient did undergo a cardiac cath which showed clean coronaries. He had a recent stress test for his
palpitations which showed no reversible ischemia and was thought to have a primary electrophysiological abnormality.
On arrival in the emergency department his heart rate was in the 150s but he was afebrile, blood pressure was in the 120s over 70s and normal oxygen saturation on room air. ECG showed A-fib RVR with a rate of 141. His troponin was 0.012. He was
given multiple rounds of IV metoprolol without any improvement. Patient was started on diltiazem.
A/P:
# AFIB RVR on admission
# s/p watchmanm, no AC
Hemodynamically stable, no chest pain, sob, dyspnea.
Trop normal. No evidence of acute CHF exacerbation. Recent cardioversion so no repeat attempt.
Off Cardizem gtt, started amiodarone 200 mg TID
Continue TOOL GRINDING TECHNICIAN metoprolol 50 bid.
TSH 4.11
s/p EKATERINA DCCV 4and converted back to sinus
started Eliquis 2.5mg po bid. Hold ASA while on Eliquis
# Acute on Chronic diastolic CHF
ProBNP 6000
CXR noted minimal bilateral pleural effusions, stable. Linear densities within the left lower lung, stable, compatible with linear atelectasis and/or scarring. Enlargement of the cardiac/mediastinal silhouette with no evidence for pulmonary
edema/vascular congestion.
IV lasix [address] of TOOL GRINDING TECHNICIAN lasix 40 po bid
Continue Imdur/BB/Crestor
DVT PPX - Eliquis
Full Code
DW at bedside
Anticipated Discharge: 24 - 48 hours
Subjective/Interval History
-
Date of Service: January 25, 2024
Objective Data
-
Labs:
Laboratory Results
01/25/24
03:18
Sodium 140
Potassium 4.3
Chloride 106
Carbon Dioxide 24
BUN 19
Creatinine 0.9
Glucose 101 H
Calcium 8.9
Vital Signs:
Vital Signs
Temp Pulse Resp BP Pulse Ox
37.1 C 111 20 116/74 98
01/25/24 07:03 01/25/24 05:00 01/25/24 07:03 01/25/24 03:08 01/25/24 07:03
I&O
01/24/24 01/25/24 01/26/24
06:59 06:59 06:59
Intake Total 660 / 660
Output Total 2375 / 2375
Balance -1715 / -1715
Review of Systems
-
All other systems: Reviewed and negative
Physical Exam
-
General: Well Developed, Well Nourished, No Apparent Distress, Comfortable and Conversant
HEENT: Normocephalic and Atraumatic
Respiratory: Clear to Auscultation
Cardiac: Regular Rhythm and S1/S2
GI: Soft, Nontender, Nondistended and Normal Bowel Sounds
Neuro: Awake, Alert, Oriented and AO x 3
Psych: Calm and Intact Judgement/Insight
Data Reviewed
-
Diagnostic Radiology: Image personally visualized and interpreted and Report Reviewed by me
Labs: Labs Reviewed by me
--- NOTE | 2024-01-25 08:33 | ITS.CL.CARDI ---
Demo Specialist - Cardioversion
Cardioversion
Procedure Report:
Date of Procedure:
Procedure: Cardioversion
Indication: Symptomatic atrial fibrillation
Performing Physician: Osbaldo Bates MD
Technique: The patient was brought to the holding area. Signed informed consent was obtained. A time out was called and performed. The patient was anesthetized by the anesthesia service. Anticoagulation status was reviewed and appropriate. R2 pads
were placed anteriorly and posteriorly. After EKATERINA revealed stable watchman device, a 200 J synchronized biphasic shock restored normal sinus rhythm without significant bradycardia. There were no complications.
Conclusion: Uncomplicated cardioversion from atrial fibrillation to sinus rhythm.
Recommendation: Routine post cardioversion care. Continue Eliquis 2.5mg po bid.
--- NOTE | 2024-01-25 08:35 | W.PN.CARDCBS ---
Today's Communication / Plan
-
Back in sinus
Cont Amiodarone/Toprol
Start IV lasix
will start Eliquis 2.5mg po bid
Hold ASA while on Eliquis
Cont Imdur/Crestor
Impression / Plan
-
Primary Finished Garment Inspector: Dr. Soria
Primary EP: Dr. Aranda
Assessment:
Presented 01/23/2024 with acute onset of palpitations
Atrial fibrillation with rapid ventricular response
Paroxysmal atrial fibrillation
s/p PVI ablation 2018
Repeat PVI ablation September 2022
s/p CV November 2022, November 2023
Cerebral amyloid angiopathy, not ideal long-term OAC candidate
Watchman implant October 04, 2022
microvascular angina with LAD myocardial bridge, but nonobstructive CAD on cath 12/2022
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
Dyslipidemia
HTN
Remote CVA
Hyperlipidemia
Exercise nuclear stress test 01/16/2024: 6:00, 7 METS, 95% PMHR, frequent PACs fixed defect in mid anterior, mid anterolateral, mid inferolateral, apical anterior and apical lateral segments consistent with soft tissue attenuation
Nuclear stress test March 03, 2022:�small mild partially reversible mid anterior lateral and apical lateral defect which partially improves with prone imaging and likely represents soft tissue attenuation but cannot completely exclude underlying
ischemia. Gated LVEF is 67%
Cardiac catheterization 01/06/2023: LM: Mild distal tapering. LAD: 30% mid with evidence of myocardial bridge noted in mid LAD. Left circumflex: Ostial 50%. RCA: 30% mid and distal stenosis with patent PDA
MRI of the brain April 23, 2021:�demonstrates tiny chronic microhemorrhages in the left frontal lobe and bilateral occipital lobes which is felt to represent early changes of cerebral amyloid angiopathy
Echo 10/05/2023: EF 55 to 60%, mild concentric LVH. Normal regional wall motion, mildly dilated left atrium, status post number 25 mm Ortiz bovine pericardial tissue valve peak/mean gradient 12/7 mmHg, mild to moderate TR with PAP 39 mmHg
EKATERINA 11/16/2022: Well-seated 35 mm Watchman left atrial appendage occluder device. Less than 3 mm residual flow seen around the device into the left atrial appendage by color Doppler. Unchanged from implant. No thrombus noted. EF 60%. Mild MR.
Number 25 mm Ortiz bovine tissue aortic valve replacement without regurgitation. Mild to moderate TR.
ECHO 08/23/22: EF 60 to 65%, mild concentric LVH, stage I diastolic dysfunction, well-seated number 25 mm Ortiz bovine pericardial tissue aortic valve replacement with peak/mean gradients 12/7 mmHg, no AR, moderate TR, PASP 40 to 45 mmHg
Plan:
-EKATERINA /CV today and pt now back in sinus rhythm
-Cont low dose Eliquis 2.5mg po bid for 2 weeks.
-Cont Amiodarone 200mg po tid and Toprol 50mg po bid
-BNP elevated and will start Lasix 40mg IV bid
-if reoccurs would consider ablation
-trop negative x1. no chest pain. Has history of abnormal EKG with anterior lateral T wave inversions. These wax and wane. He does have history of LAD myocardial bridge which could be because of waxing and waning EKG abnormality. Most recent
outpatient exercise nuclear stress test failed to demonstrate ischemia on 01/16/2024. No further ischemic evaluation at this time
-Stop ASA while on Eliquis. Cont Imdur/Crestor
Plan discussed with patient, nursing, Dr. Lucia hospitalist
HPI 01/24/2024:
Patient is a 68-year-old male with past medical history of abnormal EKG, microvascular angina with LAD myocardial bridge, but nonobstructive CAD on cath 12/2022, dyslipidemia, s/p bovine aortic valve replacement, watchman implant September 2022 and
paroxysmal atrial fibrillation status post ablation 2018, redo ablation September 2022 and multiple cardioversions most recently November 2023. He also has cerebral amyloid angiopathy, followed by neurology, Dr. Carl, and neurosurgery at [facility]. Xarelto was discontinued per their recommendation 04/2021. He underwent watchman implant September 2022 with post watchman EKATERINA in October 2022 demonstrating Less than 3 mm residual flow seen around the device into the left atrial appendage by color
Doppler. He is maintained on aspirin 81 mg.
He presents to emergency department 01/23/2024 with complaints of acute onset of palpitations and rapid heartbeat. Patient reports in mid to late November he noted intermittent fevers associated with cough and developed an episode of palpitations and
elevated heart rate. He was evaluated in the emergency department and underwent cardioversion. He was noted to have abnormal EKG with anterolateral T wave inversion more pronounced from prior EKGs and underwent a exercise nuclear stress test which
failed to demonstrate evidence of ischemia on perfusion imaging. He has continued to have intermittent fever with night sweats and cough over the last month. He was sitting outside at the pool and noticed acute onset of palpitations around 130 on
01/23/2024. He felt intermittent dizziness and some shortness of breath and noted his heart rate to be in the 150s prompting him to come to the emergency department. He was noted to be in atrial fibrillation with rapid ventricular response. Given
several boluses of IV metoprolol without improvement of symptoms and ultimately he was started on IV diltiazem drip. Troponin was negative. Normal WBC and unremarkable electrolytes. TSH 4.11. At time of this evaluation patient remains in atrial
fibrillation with controlled ventricular response on diltiazem drip. He denies chest pain, shortness of breath, dizziness, lightheadedness, edema, orthopnea or PND. He does continue to have dry cough. Afebrile.
Progress Note - Finished Garment Inspector
Subjective
Date of Service: January 25, 2024
back in sinus after EKATERINA/CV. still with cough/sob
Objective
Labs:
01/23/24 16:41
01/25/24 03:18
Labs
Hgb 13.0 g/dL (13.0-18.0) 01/23/24 16:41
Hct 37.4 % (39.0-52.0) L 01/23/24 16:41
Plt Count 245 10^3/uL (130-400) 01/23/24 16:41
Sodium 140 mmol/L (135-145) 01/25/24 03:18
Potassium 4.3 mmol/L (3.5-5.1) 01/25/24 03:18
BUN 19 mg/dl (9-20) 01/25/24 03:18
Creatinine 0.9 mg/dL (0.7-1.3) 01/25/24 03:18
Glucose 101 mg/dl (70-99) H 01/25/24 03:18
Troponins
01/23/24
16:41
Troponin I < 0.012
Vital Signs and I&O:
Vital Signs
Temp Pulse Resp BP Pulse Ox
98.7 F 105 20 125/76 96
01/25/24 07:03 01/25/24 08:00 01/25/24 07:03 01/25/24 07:05 01/25/24 07:05
Vital Signs
Temp Pulse Resp BP Pulse Ox
98.7 F 105 20 125/76 96
01/25/24 07:03 01/25/24 08:00 01/25/24 07:03 01/25/24 07:05 01/25/24 07:05
Intake & Output
01/23/24 01/24/24 01/25/24 01/26/24
06:59 06:59 06:59 06:59
Intake Total 660 / 660
Output Total 2375 / 2375
Balance -1715 / -1715
Physical Exam
Physical Exam
GEN: No distress, awake, Ox3
HEENT: supple, anicteric, mmm
LUNGS: scatt rhonchi
CV: Reg, S1/S2, 1/6 syst LSB, no gallop
ABD: soft, BS+, NT/ND
EXT: No edema
NEURO: Gross non-focal
SKIN: No rash
[2024-01-25] MEDS: LASIX PO (09:39)
[2024-01-25] MEDS: LOW STRENGTH ASPIRIN PO (09:40)
[2024-01-25] MEDS: HYTRIN 1 MG PO (09:41)
[2024-01-25] MEDS: IMDUR (EXTENDED RELEASE) 30 MG PO (09:42)
[2024-01-25] MEDS: PACERONE 200 MG PO ×3 (09:42→22:08)
[2024-01-25] MEDS: TOPROL XL 50 MG PO ×2 (09:43→19:34)
[2024-01-25] MEDS: ZETIA 10 MG PO (09:43)
[2024-01-25] MEDS: TESSALON PERLES 200 MG PO ×3 (09:51→22:10)
--- NOTE | 2024-01-25 10:18 | PTCARENOTE ---
Patient returned from EKATERINA/CV at 0935, in SR. Continues to have persistent dry cough, given tessalon pearles along with AM meds. Monitoring VS, feels so much better now that he is in SR. Ordering breakfast, call [facility]ajo in reach.
[2024-01-25] MEDS: FLUSH (NSS) 2 FLUSH IV (11:10)
[2024-01-25] MEDS: LASIX 40 MG IV ×2 (11:10→17:09)
--- NOTE | 2024-01-25 12:19 | CM ---
CM following for DC planing needs.
Met w/ patient at bedside, introduced CM, explained role.
Reviewed initial assessment. Pt. resides w/ spouse in a private, 1 story home. Functionally, patient is indep. at baseline w/ ADLs, mobility.
Antic. DC plan is for home, no needs.
CM to follow for DC planning needs as they arise.
--- NOTE | 2024-01-25 12:19 | CM ---
Priced Eliquis thru patient's insurance, . Estimated cost of a 30 d supply of Eliquis is $4.83.
--- NOTE | 2024-01-25 16:06 | W.PN.UPDATE ---
Update Note
Progress Note Update
spoke with patient, , and daughter by phone. Took time to answer all questions. Discussed case with Dr. Bates in detail. S/P EKATERINA demonstrating stable 3mm leak and no device thrombus. Cardioverted and loading with amiodarone. At this point
reasonable to complete outpatient load of amiodarone with a short 6-12 month course of amiodarone and reassess his arrhythmia burden. Alternative options of repeat ablation, pacer/AVJ ablation, alternative AAD could be considered. They will change
their appointment this tuesday with me and instead follow up with me in 4-6 months (in addition to their regular visits with Dr. Soria).
--- NOTE | 2024-01-25 21:33 | PTCARENOTE ---
Assumed care of pt. Tele- SR. L chest wall w/ steri-strips, aqaucel, and pressure dsg c/d/i. L arm immobilizer on. Pt aware of activity restrictions. Pt has no c/o at this time. Currently in bed; call avila w/in reach.
--- NOTE | 2024-01-25 21:37 | PTCARENOTE ---
Assumed care of pt. Tele- SR. Pt has no c/o at this time. Pt is currently OOB in chair; call avila w/in reach.
[2024-01-25] MEDS: CRESTOR 10 MG PO (22:08)
[2024-01-25] MEDS: CRESTOR 5 MG PO (22:08)
[2024-01-26 03:30] VITALS: BP 105/65
[2024-01-26 03:32] VITALS: BMI 29.0
[2024-01-26 05:22] LABS: Blood Urea Nitrogen 21 mg/dl (9-20); Calcium 9.3 mg/dl (8.4-10.2); Carbon Dioxide 23 mmol/L (22-30); Chloride 102 mmol/L (98-107); Estimated Creatinine Clearance 62 ml/min; Glucose 112 mg/dl (70-99); Magnesium 2.1 mg/dl (1.6-2.3); Potassium 4.3 mmol/L (3.5-5.1); Sodium 142 mmol/L (135-145); eGFR > 60.00
[2024-01-26 06:54] VITALS: BP 113/56
[2024-01-26] MEDS: ELIQUIS 2.5 MG PO (08:09)
[2024-01-26] MEDS: IMDUR (EXTENDED RELEASE) 30 MG PO (08:09)
[2024-01-26] MEDS: HYTRIN 1 MG PO (08:09)
[2024-01-26] MEDS: LASIX 40 MG IV (08:10)
[2024-01-26 08:11] VITALS: BP 118/68
--- NOTE | 2024-01-26 08:11 | W.PN.HOSP.TC ---
Today's Communication/Plan
-
see A/P
Assessment / Plan
Assessment / Plan
68-year-old male with past medical history that is significant for aortic stenosis status post bioprosthetic valve, CHF with preserved EF, atrial fibrillation status post multiple ablations x 2, status post Watchman procedure who presented to the
Emergency Department with acute onset of palpitations at around 1:30 PM
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 In that setting, the patient went into A-fib RVR and underwent cardioversion. Since then he has been having
intermittent palpitations.
There was no acute changes in medications. Reports complete compliance. He was with friends in the pool in the afternoon and then started noticing palpitations. He checked his pulse and his rate was in the 150s.
He reports that about a year ago he had an ablation and 6 months ago amiodarone was discontinued. Also of note approximately a year ago the patient did undergo a cardiac cath which showed clean coronaries. He had a recent stress test for his
palpitations which showed no reversible ischemia and was thought to have a primary electrophysiological abnormality.
On arrival in the emergency department his heart rate was in the 150s but he was afebrile, blood pressure was in the 120s over 70s and normal oxygen saturation on room air. ECG showed A-fib RVR with a rate of 141. His troponin was 0.012. He was
given multiple rounds of IV metoprolol without any improvement. Patient was started on diltiazem.
A/P:
# AFIB RVR on admission
# s/p watchmanm, no AC
Off Cardizem gtt from admission
started amiodarone 200 mg TID
Continue [employer] SUPER[employer] metoprolol 50 BID
TSH 4.11
s/p EKATERINA DCCV 01/24 and converted back to sinus
started Eliquis 2.5mg po bid, cont.
Hold ASA while on Eliquis
# Acute on Chronic diastolic CHF
ProBNP 6000
CXR noted minimal bilateral pleural effusions, stable. Linear densities within the left lower lung, stable, compatible with linear atelectasis and/or scarring. Enlargement of the cardiac/mediastinal silhouette with no evidence for pulmonary
edema/vascular congestion.
IV lasix [address] of [employer] SUPER[employer] lasix 40 po bid- will like transition to PO lasix soon
Continue Imdur/BB/Crestor
DVT PPX - Eliquis
Full Code
Anticipated Discharge: Within 24 hours
Subjective/Interval History
-
Date of Service: January 26, 2024
Objective Data
-
Labs:
Laboratory Results
01/26/24 01/26/24
03:44 04:38
Sodium Cancelled 142
Potassium Cancelled 4.3
Chloride Cancelled 102
Carbon Dioxide Cancelled 23
BUN Cancelled 21 H
Creatinine Cancelled 1.1
Glucose Cancelled 112 H
Calcium Cancelled 9.3
Vital Signs:
Vital Signs
Temp Pulse Resp BP Pulse Ox
36.6 C 67 18 105/65 93
01/26/24 06:58 01/26/24 03:30 01/26/24 06:58 01/26/24 03:30 01/26/24 06:58
I&O
01/25/24 01/26/24 01/27/24
06:59 06:59 06:59
Intake Total 660 / 660 960 / 960
Output Total 2375 / 2375 1500 / 1500 300 / 300
Balance -1715 / -1715 -540 / -540 -300 / -300
Review of Systems
-
All other systems: Reviewed and negative
Physical Exam
-
General: Well Developed, Well Nourished, No Apparent Distress, Comfortable and Conversant
HEENT: Normocephalic and Atraumatic
Respiratory: Clear to Auscultation
Cardiac: Regular Rhythm and S1/S2
GI: Soft, Nontender, Nondistended and Normal Bowel Sounds
Neuro: Awake, Alert, Oriented and AO x 3
Psych: Calm and Intact Judgement/Insight
Data Reviewed
-
Diagnostic Radiology: Image personally visualized and interpreted and Report Reviewed by me
Labs: Labs Reviewed by me
[2024-01-26] MEDS: ZETIA 10 MG PO (08:12)
[2024-01-26] MEDS: PACERONE 200 MG PO (08:12)
[2024-01-26] MEDS: TOPROL XL 50 MG PO (08:12)
[2024-01-26] MEDS: FLUSH (NSS) 1 FLUSH IV (08:13)
[2024-01-26 09:26] VITALS: BP 129/68
[2024-01-26 09:30] VITALS: BP 118/68; BP 129/68; PULSE 72
[2024-01-26 09:31] VITALS: BP 129/68; PULSE 75
--- NOTE | 2024-01-26 10:00 | CM ---
Patient for DC today. Order noted.
Met w/ patient at bedside. He feels ready for DC today. Reviewed cost of Eliquis w/ patient.
Offered VN, patient declined this.
Plan is for home, no needs.
--- NOTE | 2024-01-26 10:08 | W.PN.CARDCBS ---
Addendum entered and electronically signed by Guru Bates MD 01/26/24 13:11:
I saw and examined the patient.
The 4 H Youth Development Specialist's note was reviewed and I agree with the note.
Comment:
GEN: No distress, awake, Ox3
HEENT: supple, anicteric, mmm
LUNGS: CTA, no wheezes/rales
CV: Reg, S1/S2, 1/6 syst LSB, no gallop
ABD: soft, BS+, NT/ND
EXT: No edema
NEURO: Gross non-focal
SKIN: No rash
Plan:
Cont Amiodarone and Toprol as below.
Will cont Eliquis 2.5mg po bid
Lasix 40mg po bid as outpt
OK for D/C
If has further Afib, consider redo ablation
Addendum entered and electronically signed by Connie Lucia MD 01/26/24 11:54:
total DC time 36 min
DW Card
Original Note:
Today's Communication / Plan
-
in SR
amiodarone 200mg BID for 30 days then decrease to 200mg daily
toprol 50mg BID
eliquis 2.5mg BID for 2 weeks. no asa while on eliquis, then resume once OAC stopped
po lasix 40mg BID
OP cardiac follow up arranged
ok for DC today
Impression / Plan
-
Primary Avionics Installer: Dr. Soria
Primary EP: Dr. Aranda
Assessment:
Presented 01/23/2024 with acute onset of palpitations
Atrial fibrillation with rapid ventricular response
Paroxysmal atrial fibrillation
s/p PVI ablation 2018
Repeat PVI ablation September 2022
s/p CV November 2022, November 2023
Cerebral amyloid angiopathy, not ideal long-term OAC candidate
Watchman implant October 04, 2022
microvascular angina with LAD myocardial bridge, but nonobstructive CAD on cath 12/2022
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
Dyslipidemia
HTN
Remote CVA
Hyperlipidemia
Exercise nuclear stress test 01/16/2024: 6:00, 7 METS, 95% PMHR, frequent PACs fixed defect in mid anterior, mid anterolateral, mid inferolateral, apical anterior and apical lateral segments consistent with soft tissue attenuation
Nuclear stress test March 03, 2022:�small mild partially reversible mid anterior lateral and apical lateral defect which partially improves with prone imaging and likely represents soft tissue attenuation but cannot completely exclude underlying
ischemia. Gated LVEF is 67%
Cardiac catheterization 01/06/2023: LM: Mild distal tapering. LAD: 30% mid with evidence of myocardial bridge noted in mid LAD. Left circumflex: Ostial 50%. RCA: 30% mid and distal stenosis with patent PDA
MRI of the brain April 23, 2021:�demonstrates tiny chronic microhemorrhages in the left frontal lobe and bilateral occipital lobes which is felt to represent early changes of cerebral amyloid angiopathy
Echo 10/05/2023: EF 55 to 60%, mild concentric LVH. Normal regional wall motion, mildly dilated left atrium, status post number 25 mm Ortiz bovine pericardial tissue valve peak/mean gradient 12/7 mmHg, mild to moderate TR with PAP 39 mmHg
EKATERINA 11/16/2022: Well-seated 35 mm Watchman left atrial appendage occluder device. Less than 3 mm residual flow seen around the device into the left atrial appendage by color Doppler. Unchanged from implant. No thrombus noted. EF 60%. Mild MR.
Number 25 mm Ortiz bovine tissue aortic valve replacement without regurgitation. Mild to moderate TR.
ECHO 08/23/22: EF 60 to 65%, mild concentric LVH, stage I diastolic dysfunction, well-seated number 25 mm Ortiz bovine pericardial tissue aortic valve replacement with peak/mean gradients 12/7 mmHg, no AR, moderate TR, PASP 40 to 45 mmHg
EKATERINA 01/25/24: EF 60%, mild concentric LVH, moderately dilated left atrium, mildly dilated right atrium, #[address] with no thrombus with 3 mm leak present at 90 degrees, mild MR, bioprosthetic aortic valve in place functioning well
with no AR, moderate TR
Plan:
-Remains in sinus rhythm on review of telemetry overnight status post EKATERINA/cardioversion 01/25/24
-continue eliquis 2.5mg BID for 2 weeks. stop asa while on eliquis and resume once eliquis stopped
-will decrease amiodarone to 200mg BID for 30 days then decrease to 200mg daily
-continue toprol 50mg BID
-volume status improved s/p IV lasix. transition back to po lasix 40mg BID for DC
-if reoccurs would consider ablation
-trop negative x1. no chest pain. Has history of abnormal EKG with anterior lateral T wave inversions. These wax and wane. He does have history of LAD myocardial bridge which could be because of waxing and waning EKG abnormality. Most recent
outpatient exercise nuclear stress test failed to demonstrate ischemia on 01/16/2024. No further ischemic evaluation at this time. Cont Imdur/Crestor
-ok for DC to home
-OP cardiac follow up arranged
-d/w nursing
HPI 01/24/2024:
Patient is a 68-year-old male with past medical history of abnormal EKG, microvascular angina with LAD myocardial bridge, but nonobstructive CAD on cath 12/2022, dyslipidemia, s/p bovine aortic valve replacement, watchman implant September 2022 and
paroxysmal atrial fibrillation status post ablation 2018, redo ablation September 2022 and multiple cardioversions most recently November 2023. He also has cerebral amyloid angiopathy, followed by neurology, Dr. Carl, [facility] Xarelto was discontinued per their recommendation 04/2021. He underwent watchman implant September 2022 with post watchman EKATERINA in October 2022 demonstrating Less than 3 mm residual flow seen around the device into the left atrial appendage by color
Doppler. He is maintained on aspirin 81 mg.
He presents to emergency department 01/23/2024 with complaints of acute onset of palpitations and rapid heartbeat. Patient reports in mid to late November he noted intermittent fevers associated with cough and developed an episode of palpitations and
elevated heart rate. He was evaluated in the emergency department and underwent cardioversion. He was noted to have abnormal EKG with anterolateral T wave inversion more pronounced from prior EKGs and underwent a exercise nuclear stress test which
failed to demonstrate evidence of ischemia on perfusion imaging. He has continued to have intermittent fever with night sweats and cough over the last month. He was sitting outside at the pool and noticed acute onset of palpitations around 130 on
01/23/2024. He felt intermittent dizziness and some shortness of breath and noted his heart rate to be in the 150s prompting him to come to the emergency department. He was noted to be in atrial fibrillation with rapid ventricular response. Given
several boluses of IV metoprolol without improvement of symptoms and ultimately he was started on IV diltiazem drip. Troponin was negative. Normal WBC and unremarkable electrolytes. TSH 4.11. At time of this evaluation patient remains in atrial
fibrillation with controlled ventricular response on diltiazem drip. He denies chest pain, shortness of breath, dizziness, lightheadedness, edema, orthopnea or PND. He does continue to have dry cough. Afebrile.
Progress Note - Avionics Installer
Subjective
Date of Service: January 26, 2024
Feeling well. Eager for discharge
Objective
Labs:
01/23/24 16:41
01/26/24 04:38
Labs
Hgb 13.0 g/dL (13.0-18.0) 01/23/24 16:41
Hct 37.4 % (39.0-52.0) L 01/23/24 16:41
Plt Count 245 10^3/uL (130-400) 01/23/24 16:41
Sodium 142 mmol/L (135-145) 01/26/24 04:38
Potassium 4.3 mmol/L (3.5-5.1) 01/26/24 04:38
BUN 21 mg/dl (9-20) H 01/26/24 04:38
Creatinine 1.1 mg/dL (0.7-1.3) 01/26/24 04:38
Glucose 112 mg/dl (70-99) H 01/26/24 04:38
Troponins
01/23/24
16:41
Troponin I < 0.012
Vital Signs and I&O:
Vital Signs
Temp Pulse Resp BP Pulse Ox
97.9 F 64 18 118/68 93
01/26/24 06:58 01/26/24 08:11 01/26/24 06:58 01/26/24 08:11 01/26/24 06:58
Vital Signs
Temp Pulse Resp BP Pulse Ox
97.9 F 64 18 118/68 93
01/26/24 06:58 01/26/24 08:11 01/26/24 06:58 01/26/24 08:11 01/26/24 06:58
Intake & Output
01/24/24 01/25/24 01/26/24 01/27/24
07:59 07:59 07:59 07:59
Intake Total 660 / 660 960 / 960
Output Total 2375 / 2375 1800 / 1800
Balance -1715 / -1715 -840 / -840
Physical Exam
Physical Exam
GEN: No distress, awake, alert, oriented x3. sitting in chair
HEENT: supple, anicteric, mmm, eomi
LUNGS: CTA B/L, no wheezes/rales
CV: Reg, S1/S2, no murmur
ABD: soft, BS+, NT/ND
EXT: No cyanosis, clubbing, edema
NEURO: Gross non-focal
SKIN: Warm, pink, dry. No rash. Sternotomy scar
--- NOTE | 2024-01-26 10:14 | PTCARENOTE ---
Received patient at shift change. SR on the monitor, HR in the 70s. No complaints from pt at this time. Call [facility]ajo within reach. Patient hopeful for discharge today.
--- NOTE | 2024-01-26 11:34 | W.DCSUMMARY ---
Discharge Summary
Discharge Data
Date of Admission: 01/23/24
Date of Discharge: 01/26/24
-
Pending Results: No
Hospital Course
Principal Diagnosis:
Atrial fibrillation with rapid ventricular rate on admission status post cardioversion this admission with conversion back to normal sinus rhythm
Acute on chronic diastolic heart failure
Chronic Diagnoses:�
Aortic stenosis status post bioprosthetic valve
Diastolic heart failure
Atrial fibrillation status post multiple ablations x 2, status post Watchman procedure
Consultations:�
Cardiology
Procedures:�
EKATERINA and cardioversion 01/24
Clinical course:�
This is a 68-year-old male with past medical history as stated above, who presented with palpitation.
Problem 1:
AFIB RVR on admission.
The patient initially received Cardizem drip which was subsequently discontinued.
She underwent EKATERINA DCCV on 01/24 and was converted back to sinus rhythm.
She was started with amiodarone and was discharged with 200mg BID for 30 days then decrease to 200mg daily.
She was started with Eliquis and was informed to continue at 2.5mg BID for 2 weeks. Her prior to admission aspirin would be held while on Eliquis.
Problem 2:
Acute on Chronic diastolic CHF.
His ProBNP was at 6000.
His CXR noted minimal bilateral pleural effusions, stable.
He was briefly treated with IV lasix 40 mg BID, and was discharged back on his home dose Lasix at 40 mg p.o. twice daily.
As for the rest of his medical problems, they were stable during his hospital stay.
Discharge Plan
-
Patient Disposition: Home with Home Care
Discharge Diagnosis/Procedures: Atrial fibrillation on admission status post cardioversion 01/24;
Acute on chronic diastolic heart failure
Condition: Good
Diet: Low Fat, Low Cholesterol, 2 Gram Sodium and Restrict fluids to 48 oz
Activity: As tolerated
Driving Restrictions: As prior to admission
Specialty Instructions: Weigh Daily- Call MD for wt gain/loss 3 lbs overnight/5 lbs in 1 week
Instructions: *[facility] Heart Failure Instructions
Referrals:
Jen Hill DO [Family Provider] - in less than 1 week
Marquise Aranda MD [Active] - 05/04/24 10:40 am (You have a follow-up at the [place] office. Please call with questions)
Violeta Soria DO [Active] - 02/24/24 10:20 am (You have a cardiology follow-up appointment with Dr. Soria at the [facility] office. Please call with questions)
Additional Discharge Medication Instructions: Continue Eliquis 2.5 mg po twice daily for 2 weeks. stop aspirin while on eliquis, but resume once eliquis stopped
Continue amiodarone 200 mg twice a day for 30 days then decrease to 200mg daily!
Prescriptions:
New
amiodarone 200 mg tablet
200 mg PO BID Qty: 60 0RF
Rx Instructions:
please take 200mg twice daily for 30 days then decrease to 200mg daily! FILL FIRST
amiodarone 200 mg tablet
200 mg PO DAILY Qty: 30 5RF
Rx Instructions:
please take 200mg twice daily for 30 days then decrease to 200mg daily! FILL SECOND
Eliquis 2.5 mg tablet
2.5 mg PO BID Qty: 28 0RF
Rx Instructions:
Please take 2.5mg twice daily for 2 weeks
Continued
ezetimibe 10 MG tablet
10 mg PO DAILY
esomeprazole magnesium [Nexium] 40 MG capsule,delayed release(DR/EC)
40 mg PO BIDPRN PRN (Reason: reflux)
Men 50 Plus Multivitamin 1 EACH tablet
1 ea PO DAILY
metoprolol succinate 50 mg tablet extended release 24 hr
50 mg PO BID Qty: 60 0RF
furosemide [Lasix] 40 mg tablet
40 mg PO BID
cyclosporine [Restasis] 0.05 % Dropperette
1 drp BOTH EYES Q4HPRN PRN (Reason: dry eyes)
rosuvastatin 10 mg Tablet
10 mg PO HS
Rx Instructions:
take with 5mg for total of 15mg
isosorbide mononitrate 30 mg tablet extended release 24 hr
30 mg PO DAILY Qty: 90 5RF
ascorbic acid (vitamin C) [Vitamin C] 1,000 mg Tablet
1 g PO DAILY
terazosin 1 mg Capsule
1 mg PO DAILY
acetaminophen [Tylenol 8 Hour] 650 mg Tablet Extended Release
1,300 mg PO [id number] PRN (Reason: mild pain)
rosuvastatin 5 mg Tablet
5 mg PO HS
Rx Instructions:
take with 10mg for total of 15mg
benzonatate 200 mg Capsule
200 mg PO TIDPRN PRN (Reason: cough)
guaifenesin 100 mg/5 mL Liquid
200 mg PO Q4HPRN PRN (Reason: cough)
Discontinued
aspirin 81 mg Tablet,Chewable
81 mg PO DAILY
Discharge Orders:
Discharge Patient (As Directed); Ordered 01/26/24
Ordered By: Connie Lucia
Care Plan Goals
Care Plan Goals:
Problem: Readiness for enhanced knowledge related to diagnosis and treatment plan
Goal: Understand your diagnosis and treatment plan needs, including medications if applicable.
Instructions: Know your diagnosis, underlying causes and treatment plan options, including medications if applicable. Consult with your health care team to learn about your diagnosis and treatment plan, including medications if applicable.
Discharge Date and Time
Print Language: MOHAWK
--- NOTE | 2024-01-26 12:31 | PTCARENOTE ---
Patient seen by Cardiologystefan for discharge. Reviewed discharge instructions with patient. Patient discharged home with daughter.
== END 2024-01-26 12:07 | disposition home or self-care (01) | DRG 308 ==
LOC: IVU 22:37
PROVIDERS: Emergency Medicine; ADMITTING PHYSICIAN Internal Medicine; ATTENDING PHYSICIAN Internal Medicine; EMERGENCY PHYSICIAN Emergency Medicine; FAMILY PHYSICIAN Family Medicine; OTHER PHYSICIAN Internal Medicine Cardiovascular Disease
PROC: B24BZZ4 Ultrasonography of Heart with Aorta, Transesophageal (ICD-10-PCS; 2024-01-25)
PROC: 5A2204Z Restoration of Cardiac Rhythm, Single (ICD-10-PCS; 2024-01-25)
DX: I48.0 Paroxysmal atrial fibrillation (principal); I50.33 Acute on chronic diastolic (congestive) heart failure; E85.4 Organ-limited amyloidosis; I68.0 Cerebral amyloid angiopathy; I11.0 Hypertensive heart disease with heart failure
CPT/HCPCS: 93308; 71046; 80048; 80053; 83735; 83880; 84443; 84484; 85025; 92960; 93005; 93312; 93320; 93321; 93325; 96374; 96375; 96376; 97161; 97165; 99291

== ENCOUNTER → 2024-09-11 06:30 | Day surgery (SDC) | payer OTHER, SELFPAY | LOC: GI 06:30 | PROVIDERS: ATTENDING PHYSICIAN Internal Medicine Gastroenterology; FAMILY PHYSICIAN Family Medicine | DX: Z12.11 Encounter for screening for malignant neoplasm of colon (principal); K57.30 Diverticulosis of large intestine without perforation or abscess without bleeding; K64.8 Other hemorrhoids; Z80.0 Family history of malignant neoplasm of digestive organs | CPT/HCPCS: G0105 ==

== ENCOUNTER → 2024-11-20 13:39 | Outpatient (REF) | payer OTHER, SELFPAY | LOC: RCS 13:39 | PROVIDERS: ATTENDING PHYSICIAN Internal Medicine Cardiovascular Disease; FAMILY PHYSICIAN Family Medicine | DX: I48.0 Paroxysmal atrial fibrillation (principal) | CPT/HCPCS: 36415; 83880; 93306; 93356 ==